=== PATIENT | female | born 1995 | race Caucasian/White ===

== ENCOUNTER 2020-07-27 15:16 | Emergency (ER) | payer BC, OTHER ==
[~2020-07-27] VITALS: Ht 162.6 cm; Wt 86.2 kg
[2020-07-27 15:59] LABS: BASOPHILS ABSOLUTE AUTO 0.03 K/mm3 (0.00-0.23); BASOPHILS PERCENT AUTO 0 % (0-2); EOSINOPHILS ABSOLUTE AUTO 0.19 K/mm3 (0.00-0.68); EOSINOPHILS PERCENT AUTO 2 % (0-6); Hemoglobin 13.2 g/dL (11.5-16.0); IMMATURE GRAN ABSOLUTE AUTO 0.03 K/mm3 (0.00-0.10); IMMATURE GRAN PERCENT AUTO 0 % (0-1); LYMPHOCYTES ABSOLUTE AUTO 2.11 K/mm3 (0.84-5.20); LYMPHOCYTES PERCENT AUTO 26 % (21-46); MONOCYTES ABSOLUTE AUTO 0.45 K/mm3 (0.16-1.47); MONOCYTES PERCENT AUTO 6 % (4-13); Mean Corpuscular HGB Conc 31.4 g/dL (31.5-36.5); Mean Corpuscular Volume 79 fL (80-100); Mean Platelet Volume 10.1 fL (9.1-12.4); NEUTROPHILS ABSOLUTE AUTO 5.29 K/mm3 (1.96-9.15); NEUTROPHILS PERCENT AUTO 65 % (41-73); Platelet Count 256 K/mm3 (150-400); RDW Coefficient Variation 14.6 % (11.7-14.2); Red Blood Cell Count 5.29 M/mm3 (3.80-5.20)
[2020-07-27 16:39] LABS: Alanine Aminotransfer (ALT/SGP 28 U/L (12-78); Albumin, Blood 3.3 g/dL (3.4-5.0); Albumin/Globulin Ratio 0.8 (0.8-1.8); Alk Phos 99 U/L (50-136); Anion Gap 5 mmol/L (6-16); Aspartate Aminotrans (AST/SGOT 11 U/L (12-37); Beta HCG, Quantitative, Serum <1 mIU/mL (0-3); Bilirubin, Total 0.5 mg/dL (0.1-1.0); Blood Urea Nitrogen 14 mg/dL (8-24); CO2, Blood 25 mmol/L (21-32); Calcium, Blood 8.7 mg/dL (8.5-10.1); Chloride, Blood 111 mmol/L (98-108); Creatinine, Blood 0.56 mg/dL (0.40-1.00); Globulin, Blood 3.9 g/dL (2.2-4.0); Glomerular Filtration Rate >60 (60-); Glucose, Blood 106 mg/dL (70-99); Potassium, Blood 3.8 mmol/L (3.5-5.5); Sodium, Blood 141 mmol/L (136-145); Total Protein, Blood 7.2 g/dL (6.4-8.2)
== END 2020-07-27 19:17 | disposition home or self-care (01) ==
LOC: ER 15:16
PROVIDERS: Physician Assistant
DX: N93.9 Abnormal uterine and vaginal bleeding, unspecified (principal); Z91.040 Latex allergy status; Z91.018 Allergy to other foods
CPT/HCPCS: 76801; 76817; 76830; 80053; 84702; 85025; 86900; 86901; 99284-25

== ENCOUNTER → 2021-02-02 | Outpatient (CLI) | payer BC, OTHER ==
[2021-02-02 14:53] LABS: Appearance, Urine Clear (Clear); Bilirubin, Urine Neg (Neg); Blood, Urine Neg (Neg); Color, Urine Yellow (P-Yellow); Glucose Qualitative, Urine Neg (Neg); Ketones, Urine 4+ (Neg); Leukocyte Esterase, Urine 2+ (Neg); Nitrite, Urine Pos (Neg); Protein, Urine 2+ (Neg); Specific Gravity, Urine 1.025 (1.003-1.022); Urobilinogen, Urine 1+ (Normal)
[2021-02-02 15:16] LABS: Bacteria Many /hpf; Red Blood Cells, Urine Not Seen /hpf (0-2); Squamous Epithelial Cells Few /hpf (Few)
== END | disposition home or self-care (01) ==
LOC: LAB 12:01 → LAB SHORT 12:01
PROVIDERS: Family Medicine
DX: Z34.91 Encounter for supervision of normal pregnancy, unspecified, first trimester (principal)
CPT/HCPCS: 81001; 87077; 87086; 87186

== ENCOUNTER 2021-08-25 18:32 | Emergency (ER) | payer BC, OTHER ==
[~2021-08-25] VITALS: Ht 162.6 cm; Wt 95.2 kg
[2021-08-25 23:16] LABS: Source, Urine Clean Catch
[2021-08-25 23:26] LABS: Bilirubin, Urine Neg (Neg); Blood, Urine 1+ (Neg); Color, Urine Pale Yellow (P-Yellow); Glucose Qualitative, Urine Neg (Neg); Ketones, Urine Neg (Neg); Leukocyte Esterase, Urine 3+ (Neg); Nitrite, Urine Neg (Neg); Protein, Urine 2+ (Neg); Urobilinogen, Urine NORM (Normal)
[2021-08-25 23:27] LABS: Appearance, Urine Hazy (Clear); Bacteria Mod /hpf; Squamous Epithelial Cells Many /hpf (Few); Yeast/Fungi Urine Few /hpf
== END 2021-08-26 00:11 | disposition home or self-care (01) ==
LOC: ER 18:32
PROVIDERS: Emergency Medicine
DX: O99.891 Other specified diseases and conditions complicating pregnancy (principal); R51.9 Headache, unspecified; Z91.040 Latex allergy status; Z91.018 Allergy to other foods; Z3A.30 30 weeks gestation of pregnancy
CPT/HCPCS: 81001; 87077; 87086; 87186; 99284; A9270

== ENCOUNTER 2021-09-05 12:01 | Inpatient (IN) | payer BC, OTHER ==
[~2021-09-05] VITALS: Ht 162.6 cm; Wt 112.0 kg
[2021-09-05] MEDS ORDERED: OMEP20ER PO (14:06)
[2021-09-05 15:14] LABS: BASOPHILS ABSOLUTE AUTO 0.04 K/mm3 (0.00-0.23); BASOPHILS PERCENT AUTO 0 % (0-2); EOSINOPHILS ABSOLUTE AUTO 0.05 K/mm3 (0.00-0.68); EOSINOPHILS PERCENT AUTO 1 % (0-6); Hematocrit 33.1 % (33.0-51.0); Hemoglobin 10.2 g/dL (11.5-16.0); IMMATURE GRAN ABSOLUTE AUTO 0.09 K/mm3 (0.00-0.10); IMMATURE GRAN PERCENT AUTO 1 % (0-1); LYMPHOCYTES ABSOLUTE AUTO 2.14 K/mm3 (0.84-5.20); LYMPHOCYTES PERCENT AUTO 20 % (21-46); MONOCYTES ABSOLUTE AUTO 0.64 K/mm3 (0.16-1.47); MONOCYTES PERCENT AUTO 6 % (4-13); Mean Corpuscular HGB 23.1 pg (26.0-34.0); Mean Corpuscular HGB Conc 30.8 g/dL (31.5-36.5); Mean Corpuscular Volume 75 fL (80-100); Mean Platelet Volume 10.4 fL (9.1-12.4); NEUTROPHILS ABSOLUTE AUTO 7.86 K/mm3 (1.96-9.15); NEUTROPHILS PERCENT AUTO 73 % (41-73); Platelet Count 220 K/mm3 (150-400); RDW Coefficient Variation 15.6 % (11.7-14.2); RDW Standard Deviation 41.8 fL (35.1-46.3); Red Blood Cell Count 4.41 M/mm3 (3.80-5.20); White Blood Cell Count 10.82 K/mm3 (4.00-11.30)
[2021-09-05 15:36] LABS: Influenza A, PCR NEGATIVE (NEGATIVE); Influenza B, PCR NEGATIVE (NEGATIVE); Resp Syncytial Virus, PCR NEGATIVE (NEGATIVE); SARS-Cov-2 (COVID-19) PCR, MMC NEGATIVE (NEGATIVE)
[2021-09-05 18:52] LABS: PO2 Cord - Arterial 17.6 mmHg (16-20); pH Cord - Arterial 7.26 (7.28-7.35)
[2021-09-05 18:54] LABS: PCO2 Cord - Venous 47.3 mmHg (40-50); PO2 Cord - Venous 27.9 mmHg (28-32); pH Umbilical Cord - Venous 7.28 (7.26-7.35)
[2021-09-06 06:14] LABS: BASOPHILS ABSOLUTE AUTO 0.02 K/mm3 (0.00-0.23); BASOPHILS PERCENT AUTO 0 % (0-2); EOSINOPHILS ABSOLUTE AUTO 0.01 K/mm3 (0.00-0.68); EOSINOPHILS PERCENT AUTO 0 % (0-6); Hematocrit 30.1 % (33.0-51.0); Hemoglobin 9.3 g/dL (11.5-16.0); IMMATURE GRAN ABSOLUTE AUTO 0.17 K/mm3 (0.00-0.10); IMMATURE GRAN PERCENT AUTO 1 % (0-1); LYMPHOCYTES PERCENT AUTO 6 % (21-46); MONOCYTES ABSOLUTE AUTO 0.55 K/mm3 (0.16-1.47); MONOCYTES PERCENT AUTO 3 % (4-13); Mean Corpuscular HGB Conc 30.9 g/dL (31.5-36.5); Mean Corpuscular Volume 75 fL (80-100); Mean Platelet Volume 10.7 fL (9.1-12.4); NEUTROPHILS ABSOLUTE AUTO 17.69 K/mm3 (1.96-9.15); NEUTROPHILS PERCENT AUTO 90 % (41-73); Platelet Count 228 K/mm3 (150-400); RDW Coefficient Variation 15.4 % (11.7-14.2); RDW Standard Deviation 41.1 fL (35.1-46.3); Red Blood Cell Count 4.04 M/mm3 (3.80-5.20); White Blood Cell Count 19.64 K/mm3 (4.00-11.30)
--- NOTE | 2021-09-07 02:25 | NUR ---
ON 09/06/2021 AT 2315 THE PATIENT REPORTED SHE HAD SIGNIFICANT BILATERAL FLANK PAIN AND BLOATING/GAS IN ABDOMEN. SHE REPORTS SHE HAD A VERY SMALL BOWEL MOVEMENT YESTERDAY MORNING AND VOICES CONCERN THAT SHE HASN'T BEEN ABLE TO HAVE ANOTHER. SHE REPORTS 8/10 PAIN THAT HAS NOT BEEN RELIEVED BY PAIN MEDICATIONS AND OTHER THERAPEUTIC MEASURES. SHE ALSO REPORTED THAT SHE HAD WALKED PT IN [place] DOWN THE HALLWAY A FEW TIMES DURING THE DAY. DURING THAT TIME, HER BLEEDING WAS HEAVIER BUT HAS NOW SUBSIDED. SHE WAS GIVEN SIMETHICONE FOR GAS. GÉNESIS JIMENEZ TAPPED HER KIDNEYS AND SHE JUMPED IN PAIN WITH BOTH. PT IS BEING TREATED FOR UTI (E. COLI) WITH KEFLEX BID. CALLED MARY HEBERT, WHO IS VACCINE MANAGER THIS EVENING AND NOTIFIED HER OF THE UPDATE IN PATIENT'S STATUS. SHE ORDERED ROCEPHIN 1 GM IV NOW AND ROXICODONE 5-10 MG PO Q4H PRN BREAKTHROUGH PAIN. THESE WERE GIVEN TO PATIENT. PT ALSO HAS A HEATING PAD FOR HER BACK WHICH SHE SAYS PROVIDES SOME RELIEF.
[2021-09-08] MEDS ORDERED: Percocet 5-3251 EACH PO (03:15)
[2021-09-08] MEDS ORDERED: IBUP800 PO (03:15)
[2021-09-08] MEDS ORDERED: DOCU100 PO (03:17)
--- NOTE | 2021-09-08 09:01 | NUR ---
Pt sitting on bench at side of bed, tearful. Reporting pain 9/10, bilaterally but mostly on left flank. Using WASH TEST CHECKER appropriately with little relief. CNM in house, will notify.
[2021-09-08 09:51] LABS: BASOPHILS ABSOLUTE AUTO 0.03 K/mm3 (0.00-0.23); BASOPHILS PERCENT AUTO 0 % (0-2); EOSINOPHILS ABSOLUTE AUTO 0.08 K/mm3 (0.00-0.68); EOSINOPHILS PERCENT AUTO 1 % (0-6); Hematocrit 27.6 % (33.0-51.0); Hemoglobin 8.3 g/dL (11.5-16.0); IMMATURE GRAN ABSOLUTE AUTO 0.07 K/mm3 (0.00-0.10); IMMATURE GRAN PERCENT AUTO 1 % (0-1); LYMPHOCYTES ABSOLUTE AUTO 2.77 K/mm3 (0.84-5.20); LYMPHOCYTES PERCENT AUTO 23 % (21-46); MONOCYTES ABSOLUTE AUTO 0.65 K/mm3 (0.16-1.47); MONOCYTES PERCENT AUTO 5 % (4-13); Mean Corpuscular HGB 23.1 pg (26.0-34.0); Mean Corpuscular HGB Conc 30.1 g/dL (31.5-36.5); Mean Corpuscular Volume 77 fL (80-100); Mean Platelet Volume 10.6 fL (9.1-12.4); NEUTROPHILS ABSOLUTE AUTO 8.42 K/mm3 (1.96-9.15); NEUTROPHILS PERCENT AUTO 70 % (41-73); Platelet Count 209 K/mm3 (150-400); RDW Coefficient Variation 15.9 % (11.7-14.2); RDW Standard Deviation 43.6 fL (35.1-46.3); Red Blood Cell Count 3.59 M/mm3 (3.80-5.20); White Blood Cell Count 12.02 K/mm3 (4.00-11.30)
[2021-09-08 10:25] LABS: Alanine Aminotransfer (ALT/SGP 22 U/L (12-78); Albumin, Blood 1.9 g/dL (3.4-5.0); Albumin/Globulin Ratio 0.5 (0.8-1.8); Alk Phos 107 U/L (50-136); Amylase, Blood 53 U/L (25-115); Anion Gap 7 mmol/L (6-16); Aspartate Aminotrans (AST/SGOT 26 U/L (12-37); Bilirubin, Total 0.2 mg/dL (0.1-1.0); Blood Urea Nitrogen 11 mg/dL (8-24); Bun/Creatinine Ratio 20.2 (12.0-20.0); CO2, Blood 25 mmol/L (21-32); Calcium, Blood 8.2 mg/dL (8.5-10.1); Chloride, Blood 109 mmol/L (98-108); Creatinine, Blood 0.55 mg/dL (0.40-1.00); Globulin, Blood 3.8 g/dL (2.2-4.0); Glomerular Filtration Rate >60 (60-); Glucose, Blood 74 mg/dL (70-99); Potassium, Blood 4.1 mmol/L (3.5-5.5); Sodium, Blood 141 mmol/L (136-145); Total Protein, Blood 5.7 g/dL (6.4-8.2)
--- NOTE | 2021-09-08 13:20 | NUR ---
Pt up to br w/minimal assist mostly r/t pain. Reports she had a large bm and void. Reports pain has been better and that she has been napping. will eat lunch and then take motrin prn. VSS.
--- NOTE | 2021-09-08 16:30 | NUR ---
PT STATES SHE IS FEELING MUCH BETTER THIS AFTERNOON. PT HAS BEEN UP AMBULATING IN ROOM AND CARING FOR BABY INDEPENDANTLY. STATES SHE ISNT HAVING TO PUSH THE MEDICAL RECORDS TECHNICIAN BUTTON MUCH SO EXPLAINED NEXT GOAL IS TO TURN IT OFF COMPLETELY AND RESTART PO MEDS.
--- NOTE | 2021-09-08 18:05 | NUR ---
PT FEELING VERY GOOD AND CONTINUES TO AMBULATE IN ROOM. PT WANTING TO ACTUALLY GO HOME NOW BUT DISCUSSED IT IS A LITTLE LATE FOR PHARMACY TO FILL RX SO SHOULD BE ABLE TO DC HOME FIRST THING IN THE MORNING. ONLINE MERCHANDISING MANAGER TURNED OFF AND WILL SWITCH TO PO MEDS FOR PAIN. PT VERBALIZES UNDERSTANDING.
[2021-09-09] MEDS ORDERED: CEPH500 PO (07:09)
--- NOTE | 2021-09-09 09:37 | NUR ---
DISCHARGE DISCHARGE HOME STABLE. PAIN VERY WELL CONTROLLED NOW. NO QUESTIONS OR CONCERNS. CARING FOR SELF AND BABY INDEPENDANTLY. VERBALIZES UNDERSTANDING OF DC INSTRUCTIONS AND FOLLOW UP APPOINTMENTS.VSS.
== END 2021-09-09 09:35 | disposition home or self-care (01) | DRG 784 ==
LOC: BC 12:01 → OBS 12:01 → BC 13:36
PROVIDERS: Family Medicine; ADMIT Nurse Practitioner Obstetrics & Gynecology
PROC: 10D00Z1 Extraction of Products of Conception, Low, Open Approach (ICD-10-PCS; principal; 2021-09-05 14:30)
PROC: 0UB70ZZ Excision of Bilateral Fallopian Tubes, Open Approach (ICD-10-PCS; 2021-09-05 14:30)
DX: O34.211 Maternal care for low transverse scar from previous cesarean delivery (principal); N12 Tubulo-interstitial nephritis, not specified as acute or chronic; O98.82 Other maternal infectious and parasitic diseases complicating childbirth; Z37.0 Single live birth; Z3A.39 39 weeks gestation of pregnancy; Z20.822 Contact with and (suspected) exposure to COVID-19; Z30.2 Encounter for sterilization; Q05.9 Spina bifida, unspecified; K59.00 Constipation, unspecified; O99.892 Other specified diseases and conditions complicating childbirth; O99.214 Obesity complicating childbirth; Z28.82 Immunization not carried out because of caregiver refusal; Z79.899 Other long term (current) drug therapy; Z91.040 Latex allergy status; Z91.018 Allergy to other foods; Z85.820 Personal history of malignant melanoma of skin
CPT/HCPCS: 0241U; 36415; 59025; 74176; 76770; 80053; 82150; 82803; 83690; 85025; 86850; 86900; 86901; 86923; 88302; A9270; C1751; J0330; J0696; J1100; J1170; J1885; J2210; J2270; J2405; J2704; J2765; J3010; J7120

== ENCOUNTER 2022-02-22 16:00 | Emergency (ER) | payer BC, OTHER ==
[~2022-02-22] VITALS: Ht 162.6 cm; Wt 108.0 kg
[~2022-02-22 16:00] MED LIST: CEPH500 PO; DOCU100 PO; IBUP800 PO; OMEP20ER PO; ONDA4ODT MM; Percocet 5-3251 EACH PO; Protonix40 MG PO; SUCR1 PO
[2022-02-22 19:57] LABS: BASOPHILS ABSOLUTE AUTO 0.06 K/mm3 (0.00-0.23); BASOPHILS PERCENT AUTO 1 % (0-2); EOSINOPHILS ABSOLUTE AUTO 0.38 K/mm3 (0.00-0.68); EOSINOPHILS PERCENT AUTO 3 % (0-6); Hematocrit 36.5 % (33.0-51.0); IMMATURE GRAN ABSOLUTE AUTO 0.07 K/mm3 (0.00-0.10); IMMATURE GRAN PERCENT AUTO 1 % (0-1); LYMPHOCYTES ABSOLUTE AUTO 3.37 K/mm3 (0.84-5.20); LYMPHOCYTES PERCENT AUTO 30 % (21-46); MONOCYTES ABSOLUTE AUTO 0.62 K/mm3 (0.16-1.47); MONOCYTES PERCENT AUTO 6 % (4-13); Mean Corpuscular HGB 21.7 pg (26.0-34.0); Mean Corpuscular HGB Conc 30.1 g/dL (31.5-36.5); Mean Corpuscular Volume 72 fL (80-100); NEUTROPHILS PERCENT AUTO 60 % (41-73); Platelet Count 280 K/mm3 (150-400); RDW Coefficient Variation 18.8 % (11.7-14.2); RDW Standard Deviation 47.1 fL (35.1-46.3); Red Blood Cell Count 5.07 M/mm3 (3.80-5.20)
[2022-02-22 20:15] LABS: Albumin, Blood 3.3 g/dL (3.4-5.0); Albumin/Globulin Ratio 0.8 (0.8-1.8); Bilirubin, Total 0.2 mg/dL (0.1-1.0); Bun/Creatinine Ratio 22.9 (12.0-20.0); Calcium, Blood 8.5 mg/dL (8.5-10.1); Creatinine, Blood 0.61 mg/dL (0.40-1.00); Potassium, Blood 4.4 mmol/L (3.5-5.5); Total Protein, Blood 7.3 g/dL (6.4-8.2)
[2022-02-22] MEDS ORDERED: OXAYDO5 M1 PO (22:49)
[2022-02-22] MEDS ORDERED: METO10 PO (22:49)
== END 2022-02-22 23:09 | disposition home or self-care (01) ==
LOC: ER 16:00
PROVIDERS: Student in an Organized Health Care Education/Training Program
DX: R10.13 Epigastric pain (principal); K92.0 Hematemesis; Z79.899 Other long term (current) drug therapy; Z91.040 Latex allergy status; Z91.018 Allergy to other foods
CPT/HCPCS: 74018; 80053; 83690; 85025; C9113; J1790; J3010; J7030

== ENCOUNTER 2022-03-03 14:42 | Emergency (ER) | payer BC, OTHER ==
[~2022-03-03] VITALS: Ht 162.6 cm; Wt 108.4 kg
[~2022-03-03 14:42] MED LIST changes: +METO10 PO; +OXAYDO5 M1 PO
[2022-03-03 15:48] LABS: BASOPHILS ABSOLUTE AUTO 0.06 K/mm3 (0.00-0.23); BASOPHILS PERCENT AUTO 1 % (0-2); EOSINOPHILS ABSOLUTE AUTO 0.36 K/mm3 (0.00-0.68); EOSINOPHILS PERCENT AUTO 3 % (0-6); Hematocrit 37.9 % (33.0-51.0); Hemoglobin 11.2 g/dL (11.5-16.0); IMMATURE GRAN ABSOLUTE AUTO 0.03 K/mm3 (0.00-0.10); IMMATURE GRAN PERCENT AUTO 0 % (0-1); LYMPHOCYTES ABSOLUTE AUTO 2.62 K/mm3 (0.84-5.20); LYMPHOCYTES PERCENT AUTO 25 % (21-46); MONOCYTES PERCENT AUTO 6 % (4-13); Mean Corpuscular HGB 21.9 pg (26.0-34.0); Mean Corpuscular HGB Conc 29.6 g/dL (31.5-36.5); Mean Corpuscular Volume 74 fL (80-100); Mean Platelet Volume 9.8 fL (9.1-12.4); NEUTROPHILS ABSOLUTE AUTO 6.89 K/mm3 (1.96-9.15); NEUTROPHILS PERCENT AUTO 65 % (41-73); Platelet Count 263 K/mm3 (150-400); RDW Coefficient Variation 18.4 % (11.7-14.2); RDW Standard Deviation 49.1 fL (35.1-46.3); Red Blood Cell Count 5.12 M/mm3 (3.80-5.20); White Blood Cell Count 10.56 K/mm3 (4.00-11.30)
[2022-03-03 16:13] LABS: Albumin, Blood 3.1 g/dL (3.4-5.0); Albumin/Globulin Ratio 0.8 (0.8-1.8); Bilirubin, Total 0.4 mg/dL (0.1-1.0); Bun/Creatinine Ratio 34.4 (12.0-20.0); Calcium, Blood 8.6 mg/dL (8.5-10.1); Creatinine, Blood 0.49 mg/dL (0.40-1.00); Globulin, Blood 4.1 g/dL (2.2-4.0); Magnesium, Blood 2.1 mg/dL (1.6-2.4); Potassium, Blood 4.4 mmol/L (3.5-5.5); Total Protein, Blood 7.2 g/dL (6.4-8.2)
== END 2022-03-03 16:32 | disposition home or self-care (01) ==
LOC: ER 14:42
PROVIDERS: Physician Assistant
DX: R47.81 Slurred speech (principal); R44.3 Hallucinations, unspecified; T45.0X5A Adverse effect of antiallergic and antiemetic drugs, initial encounter; Y92.9 Unspecified place or not applicable; Z79.899 Other long term (current) drug therapy; Z91.040 Latex allergy status; Z91.018 Allergy to other foods
CPT/HCPCS: 36415; 80053; 83735; 85025; A9270

== ENCOUNTER 2022-04-09 11:28 | Emergency (ER) | payer BC, OTHER ==
[~2022-04-09] VITALS: Ht 162.6 cm; Wt 108.9 kg
[2022-04-09 12:10] LABS: BASOPHILS ABSOLUTE AUTO 0.07 K/mm3 (0.00-0.23); BASOPHILS PERCENT AUTO 1 % (0-2); EOSINOPHILS PERCENT AUTO 5 % (0-6); IMMATURE GRAN ABSOLUTE AUTO 0.04 K/mm3 (0.00-0.10); IMMATURE GRAN PERCENT AUTO 0 % (0-1); LYMPHOCYTES ABSOLUTE AUTO 3.37 K/mm3 (0.84-5.20); LYMPHOCYTES PERCENT AUTO 33 % (21-46); MONOCYTES ABSOLUTE AUTO 0.66 K/mm3 (0.16-1.47); MONOCYTES PERCENT AUTO 6 % (4-13); Mean Corpuscular HGB 21.9 pg (26.0-34.0); Mean Corpuscular HGB Conc 30.6 g/dL (31.5-36.5); Mean Corpuscular Volume 72 fL (80-100); Mean Platelet Volume 10.2 fL (9.1-12.4); NEUTROPHILS ABSOLUTE AUTO 5.71 K/mm3 (1.96-9.15); NEUTROPHILS PERCENT AUTO 55 % (41-73); Platelet Count 327 K/mm3 (150-400); RDW Coefficient Variation 16.4 % (11.7-14.2); RDW Standard Deviation 42.5 fL (35.1-46.3); Red Blood Cell Count 5.02 M/mm3 (3.80-5.20); White Blood Cell Count 10.35 K/mm3 (4.00-11.30)
[2022-04-09 12:33] LABS: Albumin, Blood 3.4 g/dL (3.4-5.0); Albumin/Globulin Ratio 0.9 (0.8-1.8); Bilirubin, Total 0.3 mg/dL (0.1-1.0); Bun/Creatinine Ratio 33.1 (12.0-20.0); Calcium, Blood 8.7 mg/dL (8.5-10.1); Creatinine, Blood 0.48 mg/dL (0.40-1.00); Globulin, Blood 3.9 g/dL (2.2-4.0); Potassium, Blood 4.2 mmol/L (3.5-5.5); Total Protein, Blood 7.3 g/dL (6.4-8.2)
[2022-04-09 14:26] LABS: Source, Urine Clean Catch
[2022-04-09 14:28] LABS: Appearance, Urine Clear (Clear); Bilirubin, Urine Neg (Neg); Blood, Urine Neg (Neg); Color, Urine Yellow (P-Yellow); Glucose Qualitative, Urine Neg (Neg); Ketones, Urine Neg (Neg); Leukocyte Esterase, Urine Neg (Neg); Nitrite, Urine Neg (Neg); Protein, Urine Neg (Neg); Urobilinogen, Urine NORM (Normal)
== END 2022-04-09 16:25 | disposition home or self-care (01) ==
LOC: ER 11:28
PROVIDERS: Physician Assistant
DX: R10.13 Epigastric pain (principal); C85.90 Non-Hodgkin lymphoma, unspecified, unspecified site; Z91.040 Latex allergy status; Z91.018 Allergy to other foods; Z79.899 Other long term (current) drug therapy; Z79.891 Long term (current) use of opiate analgesic
CPT/HCPCS: 36415; 74177; 80053; 81003; 81025; 83690; 85025; 96374-59; 99284-25; J2405; Q9967

== ENCOUNTER → 2022-05-03 | Outpatient (CLI) | payer OTHER ==
[2022-05-03 16:38] LABS: BASOPHILS ABSOLUTE AUTO 0.06 K/mm3 (0.00-0.23); BASOPHILS PERCENT AUTO 1 % (0-2); EOSINOPHILS ABSOLUTE AUTO 0.57 K/mm3 (0.00-0.68); EOSINOPHILS PERCENT AUTO 6 % (0-6); Hematocrit 38.1 % (33.0-51.0); Hemoglobin 11.5 g/dL (11.5-16.0); IMMATURE GRAN ABSOLUTE AUTO 0.03 K/mm3 (0.00-0.10); IMMATURE GRAN PERCENT AUTO 0 % (0-1); LYMPHOCYTES ABSOLUTE AUTO 2.46 K/mm3 (0.84-5.20); LYMPHOCYTES PERCENT AUTO 27 % (21-46); MONOCYTES ABSOLUTE AUTO 0.54 K/mm3 (0.16-1.47); MONOCYTES PERCENT AUTO 6 % (4-13); Mean Corpuscular HGB 21.6 pg (26.0-34.0); Mean Corpuscular HGB Conc 30.2 g/dL (31.5-36.5); Mean Corpuscular Volume 72 fL (80-100); Mean Platelet Volume 10.1 fL (9.1-12.4); NEUTROPHILS ABSOLUTE AUTO 5.52 K/mm3 (1.96-9.15); NEUTROPHILS PERCENT AUTO 60 % (41-73); Platelet Count 330 K/mm3 (150-400); RDW Coefficient Variation 16.4 % (11.7-14.2); RDW Standard Deviation 41.3 fL (35.1-46.3); Red Blood Cell Count 5.32 M/mm3 (3.80-5.20); White Blood Cell Count 9.18 K/mm3 (4.00-11.30)
[2022-05-03 16:48] LABS: Albumin, Blood 3.7 g/dL (3.4-5.0); Albumin/Globulin Ratio 0.8 (0.8-1.8); Bilirubin, Total 0.2 mg/dL (0.1-1.0); Bun/Creatinine Ratio 26.2 (12.0-20.0); Creatinine, Blood 0.61 mg/dL (0.40-1.00); Globulin, Blood 4.4 g/dL (2.2-4.0); Potassium, Blood 3.8 mmol/L (3.5-5.5); Total Protein, Blood 8.1 g/dL (6.4-8.2)
== END | disposition home or self-care (01) ==
LOC: LAB 16:33 → LAB SHORT 16:33
PROVIDERS: Physician Assistant
DX: R10.9 Unspecified abdominal pain (principal)
CPT/HCPCS: 80053; 83605; 85025; 87040

== ENCOUNTER → 2022-05-07 | Outpatient (CLI) | payer OTHER | END | disposition home or self-care (01) | LOC: LAB SHORT 19:28 → LAB 19:28 | DX: R89.9 Unspecified abnormal finding in specimens from other organs, systems and tissues (principal) | CPT/HCPCS: 87040 ==

== ENCOUNTER 2023-01-28 22:41 | Emergency (ER) | payer OTHER ==
[~2023-01-28] VITALS: Ht 162.6 cm; Wt 121.6 kg
[2023-01-28 23:08] LABS: BASOPHILS ABSOLUTE AUTO 0.05 K/mm3 (0.00-0.23); BASOPHILS PERCENT AUTO 1 % (0-2); EOSINOPHILS ABSOLUTE AUTO 0.39 K/mm3 (0.00-0.68); EOSINOPHILS PERCENT AUTO 4 % (0-6); Hematocrit 37.2 % (33.0-51.0); Hemoglobin 11.5 g/dL (11.5-16.0); IMMATURE GRAN ABSOLUTE AUTO 0.03 K/mm3 (0.00-0.10); IMMATURE GRAN PERCENT AUTO 0 % (0-1); LYMPHOCYTES ABSOLUTE AUTO 3.27 K/mm3 (0.84-5.20); LYMPHOCYTES PERCENT AUTO 31 % (21-46); MONOCYTES ABSOLUTE AUTO 0.61 K/mm3 (0.16-1.47); MONOCYTES PERCENT AUTO 6 % (4-13); Mean Corpuscular HGB Conc 30.9 g/dL (31.5-36.5); Mean Corpuscular Volume 71 fL (80-100); Mean Platelet Volume 10.1 fL (9.1-12.4); NEUTROPHILS ABSOLUTE AUTO 6.13 K/mm3 (1.96-9.15); NEUTROPHILS PERCENT AUTO 59 % (41-73); Platelet Count 271 K/mm3 (150-400); RDW Coefficient Variation 19.7 % (11.7-14.2); RDW Standard Deviation 48.4 fL (35.1-46.3); Red Blood Cell Count 5.23 M/mm3 (3.80-5.20); White Blood Cell Count 10.48 K/mm3 (4.00-11.30)
[2023-01-28 23:29] LABS: Albumin, Blood 3.2 g/dL (3.4-5.0); Albumin/Globulin Ratio 0.9 (0.8-1.8); Bilirubin, Total 0.2 mg/dL (0.1-1.0); Bun/Creatinine Ratio 32.3 (12.0-20.0); Calcium, Blood 8.2 mg/dL (8.5-10.1); Creatinine, Blood 0.56 mg/dL (0.40-1.00); Globulin, Blood 3.7 g/dL (2.2-4.0); Potassium, Blood 3.7 mmol/L (3.5-5.5); Total Protein, Blood 6.9 g/dL (6.4-8.2)
[2023-01-29 01:15] VITALS: BP 98/59
[2023-01-29] MEDS ORDERED: LEVONOR-ETH ES1 EAC5 PO (02:03)
[2023-01-29] MEDS ORDERED: EUTHYROX50 MC1 PO (02:04)
== END 2023-01-29 02:33 | disposition home or self-care (01) ==
LOC: ER 22:41
PROVIDERS: Student in an Organized Health Care Education/Training Program
DX: R55 Syncope and collapse (principal); Z91.018 Allergy to other foods; Z91.040 Latex allergy status; Z79.890 Hormone replacement therapy; Z79.1 Long term (current) use of non-steroidal anti-inflammatories (NSAID); Z79.899 Other long term (current) drug therapy
CPT/HCPCS: 36415; 71046; 80053; 84703; 85025; 85379; 93005; 93010; 96361; 96374; 96375; 99284-25; J1200; J1885; J2765; J7030

== ENCOUNTER → 2023-04-09 | Outpatient (CLI) | payer OTHER ==
[~2023-04-09] MED LIST changes: +EUTHYROX50 MC1 PO; +LEVONOR-ETH ES1 EAC5 PO
[2023-04-09 17:06] LABS: BASOPHILS ABSOLUTE AUTO 0.06 K/mm3 (0.00-0.23); BASOPHILS PERCENT AUTO 1 % (0-2); EOSINOPHILS ABSOLUTE AUTO 0.26 K/mm3 (0.00-0.68); EOSINOPHILS PERCENT AUTO 3 % (0-6); Hematocrit 41.3 % (33.0-51.0); Hemoglobin 12.6 g/dL (11.5-16.0); IMMATURE GRAN ABSOLUTE AUTO 0.03 K/mm3 (0.00-0.10); IMMATURE GRAN PERCENT AUTO 0 % (0-1); LYMPHOCYTES ABSOLUTE AUTO 2.53 K/mm3 (0.84-5.20); LYMPHOCYTES PERCENT AUTO 27 % (21-46); MONOCYTES ABSOLUTE AUTO 0.54 K/mm3 (0.16-1.47); MONOCYTES PERCENT AUTO 6 % (4-13); Mean Corpuscular HGB 22.1 pg (26.0-34.0); Mean Corpuscular HGB Conc 30.5 g/dL (31.5-36.5); Mean Corpuscular Volume 73 fL (80-100); Mean Platelet Volume 11.2 fL (9.1-12.4); NEUTROPHILS ABSOLUTE AUTO 5.92 K/mm3 (1.96-9.15); NEUTROPHILS PERCENT AUTO 63 % (41-73); Platelet Count 258 K/mm3 (150-400); RDW Coefficient Variation 16.4 % (11.7-14.2); RDW Standard Deviation 41.1 fL (35.1-46.3); White Blood Cell Count 9.34 K/mm3 (4.00-11.30)
[2023-04-09 17:28] LABS: Albumin, Blood 3.8 g/dL (3.4-5.0); Albumin/Globulin Ratio 0.8 (0.8-1.8); Bilirubin, Total 0.5 mg/dL (0.1-1.0); Bun/Creatinine Ratio 20.8 (12.0-20.0); Creatinine, Blood 0.53 mg/dL (0.40-1.00); Globulin, Blood 4.8 g/dL (2.2-4.0); Potassium, Blood 4.4 mmol/L (3.5-5.5); Total Protein, Blood 8.6 g/dL (6.4-8.2)
== END ==
LOC: LAB 15:40 → LAB SHORT 15:40
PROVIDERS: Physician Assistant
DX: E86.0 Dehydration (principal)
CPT/HCPCS: 80053; 85025

== ENCOUNTER 2023-05-03 20:24 | Emergency (ER) | payer OTHER ==
[~2023-05-03] VITALS: Ht 162.6 cm; Wt 121.6 kg
[2023-05-03 21:34] LABS: BASOPHILS ABSOLUTE AUTO 0.04 K/mm3 (0.00-0.23); BASOPHILS PERCENT AUTO 0 % (0-2); EOSINOPHILS ABSOLUTE AUTO 0.22 K/mm3 (0.00-0.68); EOSINOPHILS PERCENT AUTO 2 % (0-6); Hematocrit 39.8 % (33.0-51.0); Hemoglobin 12.2 g/dL (11.5-16.0); IMMATURE GRAN ABSOLUTE AUTO 0.02 K/mm3 (0.00-0.10); IMMATURE GRAN PERCENT AUTO 0 % (0-1); LYMPHOCYTES ABSOLUTE AUTO 2.37 K/mm3 (0.84-5.20); LYMPHOCYTES PERCENT AUTO 23 % (21-46); MONOCYTES ABSOLUTE AUTO 0.61 K/mm3 (0.16-1.47); MONOCYTES PERCENT AUTO 6 % (4-13); Mean Corpuscular HGB 22.4 pg (26.0-34.0); Mean Corpuscular HGB Conc 30.7 g/dL (31.5-36.5); Mean Corpuscular Volume 73 fL (80-100); Mean Platelet Volume 10.5 fL (9.1-12.4); NEUTROPHILS ABSOLUTE AUTO 7.02 K/mm3 (1.96-9.15); NEUTROPHILS PERCENT AUTO 68 % (41-73); Platelet Count 302 K/mm3 (150-400); RDW Coefficient Variation 16.6 % (11.7-14.2); RDW Standard Deviation 42.9 fL (35.1-46.3); Red Blood Cell Count 5.44 M/mm3 (3.80-5.20); White Blood Cell Count 10.28 K/mm3 (4.00-11.30)
[2023-05-03 21:48] LABS: Albumin, Blood 3.7 g/dL (3.4-5.0); Albumin/Globulin Ratio 0.8 (0.8-1.8); Bilirubin, Total 0.4 mg/dL (0.1-1.0); Bun/Creatinine Ratio 10.5 (12.0-20.0); Calcium, Blood 9.2 mg/dL (8.5-10.1); Creatinine, Blood 0.67 mg/dL (0.40-1.00); Globulin, Blood 4.4 g/dL (2.2-4.0); Total Protein, Blood 8.1 g/dL (6.4-8.2)
[2023-05-03 21:48] LABS: Source, Urine Clean Catch
[2023-05-03 21:52] LABS: Appearance, Urine Hazy (Clear); Bilirubin, Urine Neg (Neg); Blood, Urine 2+ (Neg); Glucose Qualitative, Urine Neg (Neg); Ketones, Urine Neg (Neg); Leukocyte Esterase, Urine 2+ (Neg); Nitrite, Urine Pos (Neg); Protein, Urine 1+ (Neg); Specific Gravity, Urine 1.015 (1.003-1.022); Urobilinogen, Urine NORM (Normal)
[2023-05-03 22:24] LABS: Color, Urine Pale Yellow (P-Yellow)
[2023-05-03 22:25] LABS: Bacteria Mod /hpf; Red Blood Cells, Urine 0-2 /hpf (0-2); Squamous Epithelial Cells Few /hpf (Few); White Blood Cells, Urine 50-100 /hpf (0-5)
[2023-05-04] VITALS: BP 109/79
[2023-05-04] MEDS ORDERED: CIPR500 PO (01:42)
[2023-05-04] MEDS ORDERED: METR500 PO (01:42)
== END 2023-05-04 02:03 | disposition home or self-care (01) ==
LOC: ER 20:24
PROVIDERS: Student in an Organized Health Care Education/Training Program
DX: K52.9 Noninfective gastroenteritis and colitis, unspecified (principal); Z79.890 Hormone replacement therapy; Z79.3 Long term (current) use of hormonal contraceptives
CPT/HCPCS: 74177; 80053; 81001; 83690; 85025; 87077; 87086; 87186; 96361; 96374-59; 96375; 99284-25; A9270; J1885; J2405; J7030; Q9967

== ENCOUNTER → 2023-08-08 | Outpatient (CLI) | payer OTHER ==
[~2023-08-08] MED LIST changes: +CIPR500 PO; +METR500 PO
[2023-08-12 09:27] LABS: OVA AND PARASITE,FECAL INTERP Negative (Negative)
== END ==
LOC: LAB SHORT 13:55 → LAB 13:55
PROVIDERS: Physician Assistant
DX: R19.5 Other fecal abnormalities (principal)
CPT/HCPCS: 87177; 87209

== ENCOUNTER 2024-01-14 02:31 | Inpatient (IN) | payer OTHER ==
[~2024-01-14] VITALS: Ht 162.6 cm; Wt 120.8 kg
[2024-01-14] VITALS (9 sets, daily range): BP systolic 100–119; BP diastolic 59–85
[2024-01-14] MEDS ORDERED: DESV50 PO ×2 (04:37)
[2024-01-14] MEDS ORDERED: OMEP20ER PO ×2 (04:37)
[2024-01-14] MEDS ORDERED: Ketorolac Tromethamine 30mg Vial IV ONE (06:25)
[2024-01-14] MEDS ORDERED: NS 1,000 ML IV SCH ×2 (06:25→12:10)
[2024-01-14 07:08] LABS: BASOPHILS ABSOLUTE AUTO 0.06 K/mm3 (0.00-0.23); BASOPHILS PERCENT AUTO 1 % (0-2); EOSINOPHILS ABSOLUTE AUTO 0.23 K/mm3 (0.00-0.68); EOSINOPHILS PERCENT AUTO 2 % (0-6); Hematocrit 42.6 % (33.0-51.0); Hemoglobin 13.8 g/dL (11.5-16.0); IMMATURE GRAN ABSOLUTE AUTO 0.04 K/mm3 (0.00-0.10); IMMATURE GRAN PERCENT AUTO 0 % (0-1); LYMPHOCYTES ABSOLUTE AUTO 3.21 K/mm3 (0.84-5.20); LYMPHOCYTES PERCENT AUTO 26 % (21-46); MONOCYTES ABSOLUTE AUTO 0.75 K/mm3 (0.16-1.47); MONOCYTES PERCENT AUTO 6 % (4-13); Mean Corpuscular HGB 25.3 pg (26.0-34.0); Mean Corpuscular HGB Conc 32.4 g/dL (31.5-36.5); Mean Corpuscular Volume 78 fL (80-100); Mean Platelet Volume 10.4 fL (9.1-12.4); NEUTROPHILS PERCENT AUTO 65 % (41-73); Platelet Count 270 K/mm3 (150-400); RDW Coefficient Variation 16.2 % (11.7-14.2); RDW Standard Deviation 45.4 fL (35.1-46.3); Red Blood Cell Count 5.46 M/mm3 (3.80-5.20); White Blood Cell Count 12.29 K/mm3 (4.00-11.30)
[2024-01-14 07:28] LABS: Albumin, Blood 3.6 g/dL (3.4-5.0); Albumin/Globulin Ratio 0.9 (0.8-1.8); Bilirubin, Total 0.3 mg/dL (0.1-1.0); Bun/Creatinine Ratio 20.2 (12.0-20.0); Calcium, Blood 9.3 mg/dL (8.5-10.1); Creatinine, Blood 0.54 mg/dL (0.40-1.00); Globulin, Blood 4.1 g/dL (2.2-4.0); Total Protein, Blood 7.7 g/dL (6.4-8.2)
[2024-01-14 09:05] LABS: Influenza A, PCR NEGATIVE (NEGATIVE); Influenza B, PCR NEGATIVE (NEGATIVE); Resp Syncytial Virus, PCR NEGATIVE (NEGATIVE); SARS-Cov-2 (COVID-19) PCR, MMC NEGATIVE (NEGATIVE)
[2024-01-14] MEDS ORDERED: Aspirin 325 MG Tab PO ONE (09:20)
[2024-01-14] MEDS ORDERED: Ondansetron HCl 2 MG / ML 2ML Vial IV ONE (09:20)
[2024-01-14] MEDS ORDERED: FentaNYL Citrate 50 MCG/ML 2 ML Injection IV ONE (09:20)
[2024-01-14 11:02] LABS: Anti-Xa UFH, PHA Monitoring <0.10 IU/mL; International Normalized Ratio 1.14; Prothrombin Time Results 12.1 Sec (9.7-11.5)
[2024-01-14] MEDS ORDERED: Heparin Sodium 5000 Units/ML 1ML MDV IV ONE ×2 (11:20→22:20)
[2024-01-14] MEDS ORDERED: Heparin Sodium,Porcine/0.5 NS 500 ML IV SCH (11:20)
[2024-01-14] MEDS ORDERED: Ondansetron 4 MG TAB PO PRN (12:10)
[2024-01-14] MEDS ORDERED: Zolpidem Tartrate 10 MG Tab PO PRN (12:10)
[2024-01-14] MEDS ORDERED: Nitroglycerin 0.4 MG SUBL SL PRN (12:30)
[2024-01-14 12:58] LABS: CHOL/HDL RATIO 2.2; Cholesterol 115 mg/dL (50-200); HDL Cholesterol 53 mg/dL (>39); LDL/HDL RATIO 0.9; Low Density Lipoprotein Chol 48 mg/dL (0-110); Triglycerides 71 mg/dL (30-140); Very Low Density Lipoprot Chol 14 mg/dL (6-28)
[2024-01-14] MEDS ORDERED: Omeprazole 20 MG CapCR PO SCH (16:30)
--- NOTE | 2024-01-14 18:19 | NUR ---
PT ARRIVED THIS AFTERNOON FROM ER. SHE HAD ARRIVED TO ER WITH 3 DAYS HX OF CHEST PAIN. SHE HAS HX OF PRE-ECLAMPSIA 2 YEARS AGO, AND ABNORMAL STRESS TEST A FEW MONTHS AGO. THE PLAN IS FOR HER TO GO FOR ANGIO ON MONDAY 01/15. SHE IS CURRENTLY ON A HEPARIN DRIP. SHE HAS NS INFUSING AT THIS TIME. 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 SHE HAD CP THAT SHE RATED 7/10 ON ARRIVAL WHICH WAS ENTIRELY ELIMINATED WITH NITRO
[2024-01-14] MEDS ORDERED: Acetaminophen 325 MG TABLET PO PRN (21:20)
[2024-01-14] MEDS ORDERED: Dose Adjust by Pharmacy XX STA (22:15)
[2024-01-15 03:37] LABS: Source, Urine Clean Catch
[2024-01-15 03:43] VITALS: BP 105/60; BP 121/76
[2024-01-15 03:49] LABS: Bilirubin, Urine Neg (Neg); Blood, Urine Neg (Neg); Glucose Qualitative, Urine Neg (Neg); Ketones, Urine Neg (Neg); Leukocyte Esterase, Urine 2+ (Neg); Nitrite, Urine Pos (Neg); Protein, Urine Neg (Neg); Urobilinogen, Urine NORM (Normal)
[2024-01-15 04:14] LABS: Appearance, Urine Hazy (Clear); Bacteria Many /hpf; Color, Urine Yellow (P-Yellow); Red Blood Cells, Urine Not Seen /hpf (0-2); Squamous Epithelial Cells Few /hpf (Few); White Blood Cells, Urine 25-50 /hpf (0-5)
[2024-01-15 04:44] LABS: Hematocrit 36.3 % (33.0-51.0); Hemoglobin 11.5 g/dL (11.5-16.0); Mean Platelet Volume 10.2 fL (9.1-12.4); Platelet Count 220 K/mm3 (150-400)
--- NOTE | 2024-01-15 05:06 | NUR ---
SHIFT SUMMARY PT A&OX4, ABLE TO MAKE NEEDS KNOWN. VSS, AFEBRILE, SPO2 >95% RA. PT REPORTED MILD CP T/O SHIFT, NITRO ADMINISTERED X2 WITH SOME RESOLUTION OF PAIN AND SOB. PT CONTINUES TO REPORT THAT CP IS TENDER TO PALPATION AND WORSE WITH BREATHING. OBTAINED TYLENOL ORDER, ADMINISTERED PER EMAR. PT ALSO HAD C/O MILD MANZANARES AND A "BUZZING" SENSATION IN HER CHEST. SHE STATES THAT THESE SYMPTOMS HAVE BEEN GOING ON FOR QUITE SOMETIME AND DO NOT SEEM TO BE WORSE AT THIS TIME. HEPARIN GTT INFUSING. PT HAS HX SPINA BIFIDA AND PERFORMS SELF STRAIGHT CATHS, SUPPLIES IN ROOM. PT IS RESTING QUIETLY IN BED, CALL LIGHT WITHIN REACH, BREATHING EVEN AND UNLABORED.
[2024-01-15 08:13] VITALS: BP 127/73
--- NOTE | 2024-01-15 08:38 | NUR ---
PT A/O X4. SHE REPORTS THAT CP THAT SHE HAD PRIOR TO SHIFT CHANGE HAS RESOLVED WITH THE NITRO THAT WAS GIVEN THIS AM. SHE CONTINUES WITH THE LEFT STERNAL BORDER PAIN THAT IS WORSE WITH PALPATION AND INSPIRATION, PLUS A "DEEPER" PAIN OF LEFT CHEST WALL NEAR AXILA. DENIES SOB, EVEN CHEST RISE AND FALL NOTED, NO RETRACTIONS OR NASAL FLARRING SHE IS TALKING IN FULL SENTENCES. SHE CONTINUES WITH SELF CATHING AND USING BATHROOM INTERMITTENTLY. NO ABD PAIN REPORTED, ABDOMEN SOFT AND ROUND. SKIN PWD AND INTACT. NO RASHING OR EDEMA NOTED. HEPARIN CONTINUES TO INFUSE, NS HAS COMPLETED PRIOR TO THIS SHIFT. SHE IS ABLE TO AMBULATE TO BATHROOM WITH EVEN STEADY GAIT.
[2024-01-15] MEDS ORDERED: Aspirin 81 MG Chew PO SCH (09:00)
[2024-01-15] MEDS ORDERED: Venlafaxine HCl 75 MG CapCR PO SCH (09:00)
[2024-01-15] MEDS ORDERED: Dose Adjust by Pharmacy XX STA (11:58)
[2024-01-15 12:46] VITALS: BP 116/66
[2024-01-15] MEDS ORDERED: CefTRIAXone Sodium 1,000 MG in NS 100 ML IV SCH (15:00)
[2024-01-15] MEDS ORDERED: Lidocaine HCl 1% 20 ML MDV INFIL ONE (15:15)
[2024-01-15 16:55] VITALS: BP 124/85
--- NOTE | 2024-01-15 18:48 | NUR ---
PT HAS BEEN RESTING WELL IN BED T/O THE DAY. NO CHEST PAIN SINCE THIS AM. SHE HAS BOUTS OF ANXIETY THAT ARE RESOLVED WITH THERAPEUTIC COMMUNICATION. SR NOTED ON MONITOR WITH VSS. LAKHANI. SHE DENIES SOB, SHE REMAINS ON ROOM AIR. HEPARIN HAS BEEN INFUSING T/O THIS SHIFT WITHOUT RATE CHANGES. SHE WILL BE NPO AT [facility], SHE IS AWARE OF THIS TO PREPARE FOR ANGIO TOMORROW. WE HAVE NOT HAD ANY ACUTE CHANGES DURING THIS SHIFT
[2024-01-15 19:26] VITALS: BP 109/82
[2024-01-15 23:55] VITALS: BP 125/87
[2024-01-16] VITALS (9 sets, daily range): BP systolic 108–138; BP diastolic 77–120
--- NOTE | 2024-01-16 05:48 | NUR ---
1915 Assumed care of pt, bedside report completed. Shift plan of care reviewed woth pt, all questions answered. 2330 and 2 small children in to visit pt. Exception to visitor policy made as children both under 5 and have not seen pt in 2 days. Father to remain in control of children and committed to stress free visit for pt. 0130 Family has left for the night. Pt now reports level 8/10 headache and increased WOB/RR very similar to admission symptoms, though is denying any chest pain at this time. Medicated with Tylenol for pain and Ambien for pt to be able to try and get some rest prior to Angio this AM. Has been NPO since midnoc. 0330 Pt appears to be asleep at this time, will continue to monitor. 0600 Continues to be resting comfortably in bed. Awakend for AM labs to be drawn via [facility] Powerglide. Heparin gtt continues per pharmacy direction. Please see full assessment for additional details. No further complaints or concerns at this time, will continue to monitor.
[2024-01-16] MEDS ORDERED: Verapamil HCL 2.5 MG/ML 2ML Injection ONE (06:18)
[2024-01-16] MEDS ORDERED: Heparin Sodium 1000 Units/ML 10ML MDV ONE (06:18)
[2024-01-16] MEDS ORDERED: NS 250 ML IV ONE (06:19)
[2024-01-16] MEDS ORDERED: NS 2,000 ML IV ONE (06:19)
[2024-01-16] MEDS ORDERED: Nitroglycerin 2 MG/20 ML BTL ONE (06:20)
[2024-01-16 06:31] LABS: Hematocrit 35.3 % (33.0-51.0); Hemoglobin 11.1 g/dL (11.5-16.0); Mean Platelet Volume 10.5 fL (9.1-12.4); Platelet Count 213 K/mm3 (150-400)
[2024-01-16] MEDS ORDERED: Midazolam HCl 1MG / ML 2ML Vial ONE ×2 (06:31→07:15)
[2024-01-16] MEDS ORDERED: FentaNYL Citrate 50 MCG/ML 2 ML Injection ONE (06:31)
--- NOTE | 2024-01-16 08:08 | NUR ---
AM NOTE PT ARRIVED TO PCU FROM TOOL AND DIE INSPECTOR AT APPROX. 0750. HR AND BP STABLE. THERE IS 11 ML OF AIR IN TR BAND WHICH WAS PLACED AT 0740 PER ORDERS. R RADIAL ACCESS SITE IS FREE FROM APPARENT BLEEDING OR HEMATOMA, PULSES ARE STRONG BILATERALLY. SHE REPORTS CHEST TIGHTNESS BUT DENIES CHEST PAIN. SHE ALSO REPORTED FEELINGS OF NAUSEA, ZOFRAN GIVEN PER EMAR ORDERS. SHE HAS BEEN EDUCATED BY THIS RN REGARDING POST ANGIO SITE CARE/LIMITING R ARM USE DUE TO PROCEDURE. CALL LIGHT IS W/IN REACH.
[2024-01-16] MEDS ORDERED: dilTIAZem HCL 120 MG CAP.CD PO SCH (09:00)
[2024-01-16] MEDS ORDERED: Acetaminophen650 M1 PO ×2 (09:56)
[2024-01-16] MEDS ORDERED: ASPI81CH PO ×2 (09:57)
[2024-01-16] MEDS ORDERED: DILT120 PO ×2 (09:59)
[2024-01-16] MEDS ORDERED: NITR100CA PO ×2 (10:56)
[2024-01-16] MEDS ORDERED: Isosorbide Mono30 MG PO ×2 (11:50)
--- NOTE | 2024-01-16 12:11 | NUR ---
UPDATE TR BAND FULLY RECOVERED. SITE CLEANED WITH CHLORHEXIDINE AND TEGADERM PLACED OVER. SITE FREE OF OOZING, TENDERNESS, OR HEMATOMA. PT DENIES NUMBNESS AND OR TINGLING. RIGHT HAND WARM TO THE TOUCH WITH PULSE PRESENT.
--- NOTE | 2024-01-16 13:11 | NUR ---
DISCHARGE NOTE PT WAS ALERT AND ORIENTED X 4 AND INDEPENDENT IN THE ROOM. VITAL SIGNS WERE STABLE, SHE WAS ON ROOM AIR. R RADIAL POST ANGIO ACCESS SITE REMAINED FREE FROM SIGNS OF APPARENT BLEEDING/HEMATOMA. TR BAND WAS REMOVED AND A TRANSPARENT DRESSING WAS PLACED ALONG W/ AN ARM BOARD. PT WAS EDUCATED BY THIS RN REGARDING DISCHARGE INSTRUCTIONS INCLUDING POST ANGIO ACCESS SITE CARE, FOLLOW UP APPOINTMENTS AND NEW MEDICATION REGIMEN. THIS RN ALSO REMOVED ALL IV ACCESS SITE. PT LEFT PCU W/ ALL OF PERSONAL BELONGINGS AT APPROX. 1300 AND WAS ESCORTED OUTSIDE VIA WHEELCHAIR BY THIS RN.
== END 2024-01-16 12:58 | disposition home or self-care (01) | DRG 287 ==
LOC: ER 02:31 → PCU 02:32
PROVIDERS: Emergency Medicine; ADMIT Internal Medicine
PROC: 4A023N7 Measurement of Cardiac Sampling and Pressure, Left Heart, Percutaneous Approach (ICD-10-PCS; principal; 2024-01-16)
PROC: B2111ZZ Fluoroscopy of Multiple Coronary Arteries using Low Osmolar Contrast (ICD-10-PCS; 2024-01-16)
DX: R07.89 Other chest pain (principal); N39.0 Urinary tract infection, site not specified; Z68.42 Body mass index [BMI] 45.0-49.9, adult; E66.9 Obesity, unspecified; F17.210 Nicotine dependence, cigarettes, uncomplicated; D72.829 Elevated white blood cell count, unspecified; F41.9 Anxiety disorder, unspecified; Z82.49 Family history of ischemic heart disease and other diseases of the circulatory system; F42.9 Obsessive-compulsive disorder, unspecified; K58.9 Irritable bowel syndrome, unspecified; Q05.9 Spina bifida, unspecified; I45.10 Unspecified right bundle-branch block; Z91.040 Latex allergy status; Z91.018 Allergy to other foods; Z79.899 Other long term (current) drug therapy; Z85.820 Personal history of malignant melanoma of skin; Z85.72 Personal history of non-Hodgkin lymphomas; Z92.21 Personal history of antineoplastic chemotherapy; Z92.3 Personal history of irradiation; Z87.19 Personal history of other diseases of the digestive system; Z90.49 Acquired absence of other specified parts of digestive tract; Z98.890 Other specified postprocedural states; Z98.51 Tubal ligation status
CPT/HCPCS: 0241U; 36200; 36415; 71045; 76937; 80053; 80061; 81001; 84484; 85014; 85018; 85025; 85049; 85520; 85610; 85730; 87077; 87086; 87186; 93005; 93010; 93454; 96361; 96374; 96375; 96376; 99152; 99153; 99285-25; A9270; C1769; C1887; C1894; G0378; J0696; J1644; J1885; J2250; J3010; J7030; J7050; Q9967

== ENCOUNTER 2024-01-17 04:46 | Emergency (ER) | payer OTHER ==
[~2024-01-17] VITALS: Ht 162.6 cm; Wt 121.6 kg
[~2024-01-17 04:46] MED LIST changes: +ASPI81CH PO; +Acetaminophen650 M1 PO; +DESV50 PO; +DILT120 PO; +Isosorbide Mono30 MG PO; +NITR100CA PO
[2024-01-17 06:05] LABS: BASOPHILS ABSOLUTE AUTO 0.05 K/mm3 (0.00-0.23); BASOPHILS PERCENT AUTO 0 % (0-2); EOSINOPHILS ABSOLUTE AUTO 0.16 K/mm3 (0.00-0.68); EOSINOPHILS PERCENT AUTO 1 % (0-6); Hemoglobin 13.5 g/dL (11.5-16.0); IMMATURE GRAN ABSOLUTE AUTO 0.15 K/mm3 (0.00-0.10); IMMATURE GRAN PERCENT AUTO 1 % (0-1); LYMPHOCYTES ABSOLUTE AUTO 1.91 K/mm3 (0.84-5.20); LYMPHOCYTES PERCENT AUTO 17 % (21-46); MONOCYTES ABSOLUTE AUTO 0.61 K/mm3 (0.16-1.47); MONOCYTES PERCENT AUTO 5 % (4-13); Mean Corpuscular HGB 24.9 pg (26.0-34.0); Mean Corpuscular HGB Conc 32.1 g/dL (31.5-36.5); Mean Corpuscular Volume 78 fL (80-100); Mean Platelet Volume 9.8 fL (9.1-12.4); NEUTROPHILS ABSOLUTE AUTO 8.56 K/mm3 (1.96-9.15); NEUTROPHILS PERCENT AUTO 75 % (41-73); Platelet Count 242 K/mm3 (150-400); RDW Coefficient Variation 15.9 % (11.7-14.2); RDW Standard Deviation 44.7 fL (35.1-46.3); Red Blood Cell Count 5.42 M/mm3 (3.80-5.20); White Blood Cell Count 11.44 K/mm3 (4.00-11.30)
[2024-01-17] MEDS ORDERED: Lactated Ringer's 1,000 ML IV ONE (06:25)
[2024-01-17] MEDS ORDERED: Acetaminophen 325 MG TABLET PO ONE (06:25)
[2024-01-17 06:34] LABS: Albumin, Blood 3.8 g/dL (3.4-5.0); Albumin/Globulin Ratio 0.8 (0.8-1.8); Bilirubin, Total 0.5 mg/dL (0.1-1.0); Bun/Creatinine Ratio 14.4 (12.0-20.0); Calcium, Blood 9.3 mg/dL (8.5-10.1); Creatinine, Blood 0.55 mg/dL (0.40-1.00); Globulin, Blood 4.5 g/dL (2.2-4.0); Potassium, Blood 4.1 mmol/L (3.5-5.5); Total Protein, Blood 8.3 g/dL (6.4-8.2)
[2024-01-17 07:45] VITALS: BP 118/78
== END 2024-01-17 07:55 | disposition home or self-care (01) ==
LOC: ER 04:46
PROVIDERS: Emergency Medicine
DX: R51.9 Headache, unspecified (principal); R11.2 Nausea with vomiting, unspecified
CPT/HCPCS: 80053; 84484; 85025; 93005; 93010; 96360; 99284-25; A9270; J7120

== ENCOUNTER → 2024-01-18 | Outpatient (CLI) | payer OTHER ==
[2024-01-19 13:41] LABS: Adenovirus F 40/41 Not Detected (NOT DETECT); Astrovirus Not Detected (NOT DETECT); Campylobacter Sp Not Detected (NOT DETECT); Cryptosporidium Not Detected (NOT DETECT); Cyclospora Cayetanensis Not Detected (NOT DETECT); E. Coli O157 Not Detected (NOT DETECT); Entamoeba Histolytica Not Detected (NOT DETECT); Enteroaggregative E. coli-EAEC Not Detected (NOT DETECT); Enteropathogenic E. coli-EPEC Not Detected (NOT DETECT); Enterotoxigenic E. coli-ETEC Not Detected (NOT DETECT); Giardia Lamblia Not Detected (NOT DETECT); Norovirus GI/GII Not Detected (NOT DETECT); Plesiomonas Shigelloides Not Detected (NOT DETECT); Rotavirus A Not Detected (NOT DETECT); Salmonella Sp Not Detected (NOT DETECT); Sapovirus Not Detected (NOT DETECT); Shiga Toxin-prod E. coli-STEC Not Detected (NOT DETECT); Shigella/Enteroin E. coli-EIEC Not Detected (NOT DETECT); Vibrio Cholerae Not Detected (NOT DETECT); Vibrio Sp Not Detected (NOT DETECT); Yersinia Enterocolitica Not Detected (NOT DETECT)
[2024-01-21 18:57] LABS: PANCREATIC ELASTASE,FECAL >800 ug/g (>=100)
[2024-01-21 19:00] LABS: CALPROTECTIN,FECAL 245 ug/g (<=49)
== END | disposition home or self-care (01) ==
LOC: LAB 11:00 → LAB SHORT 11:00
PROVIDERS: Physician Assistant
DX: K52.9 Noninfective gastroenteritis and colitis, unspecified (principal)
CPT/HCPCS: 82653; 83993; 87507

== ENCOUNTER → 2024-01-25 | Outpatient (CLI) | payer OTHER | END | disposition home or self-care (01) | LOC: LAB 11:20 → LAB SHORT 11:20 | DX: R30.0 Dysuria (principal) | CPT/HCPCS: 87086 ==

== ENCOUNTER 2024-03-04 04:14 | Emergency (ER) | payer OTHER ==
[~2024-03-04] VITALS: Ht 162.6 cm; Wt 121.6 kg
[2024-03-04 04:29] VITALS: BP 151/90
[2024-03-04 05:36] LABS: BASOPHILS ABSOLUTE AUTO 0.05 K/mm3 (0.00-0.23); BASOPHILS PERCENT AUTO 1 % (0-2); EOSINOPHILS ABSOLUTE AUTO 0.45 K/mm3 (0.00-0.68); EOSINOPHILS PERCENT AUTO 4 % (0-6); Hematocrit 41.7 % (33.0-51.0); Hemoglobin 13.1 g/dL (11.5-16.0); IMMATURE GRAN ABSOLUTE AUTO 0.05 K/mm3 (0.00-0.10); IMMATURE GRAN PERCENT AUTO 1 % (0-1); LYMPHOCYTES ABSOLUTE AUTO 2.94 K/mm3 (0.84-5.20); LYMPHOCYTES PERCENT AUTO 27 % (21-46); MONOCYTES ABSOLUTE AUTO 0.65 K/mm3 (0.16-1.47); MONOCYTES PERCENT AUTO 6 % (4-13); Mean Corpuscular HGB 24.9 pg (26.0-34.0); Mean Corpuscular HGB Conc 31.4 g/dL (31.5-36.5); Mean Corpuscular Volume 79 fL (80-100); Mean Platelet Volume 9.9 fL (9.1-12.4); NEUTROPHILS ABSOLUTE AUTO 6.83 K/mm3 (1.96-9.15); NEUTROPHILS PERCENT AUTO 62 % (41-73); Platelet Count 269 K/mm3 (150-400); RDW Coefficient Variation 14.3 % (11.7-14.2); RDW Standard Deviation 40.8 fL (35.1-46.3); Red Blood Cell Count 5.26 M/mm3 (3.80-5.20); White Blood Cell Count 10.97 K/mm3 (4.00-11.30)
[2024-03-04 05:55] LABS: Albumin, Blood 3.3 g/dL (3.4-5.0); Albumin/Globulin Ratio 0.8 (0.8-1.8); Bilirubin, Total 0.3 mg/dL (0.1-1.0); Bun/Creatinine Ratio 24.7 (12.0-20.0); Calcium, Blood 9.2 mg/dL (8.5-10.1); Creatinine, Blood 0.53 mg/dL (0.40-1.00); Globulin, Blood 4.3 g/dL (2.2-4.0); Potassium, Blood 4.3 mmol/L (3.5-5.5); Total Protein, Blood 7.6 g/dL (6.4-8.2)
[2024-03-04] MEDS ORDERED: Acetaminophen 500 MG Tab PO ONE (06:25)
[2024-03-04] MEDS ORDERED: Ondansetron HCl 2 MG / ML 2ML Vial IV ONE (06:25)
[2024-03-04] MEDS ORDERED: NS 1,000 ML IV SCH (06:25)
[2024-03-04 06:40] LABS: Magnesium, Blood 2.4 mg/dL (1.6-2.4)
[2024-03-04 06:54] LABS: Source, Urine Clean Catch
[2024-03-04 07:02] LABS: Bilirubin, Urine Neg (Neg); Blood, Urine Neg (Neg); Glucose Qualitative, Urine Neg (Neg); Ketones, Urine Neg (Neg); Leukocyte Esterase, Urine Neg (Neg); Nitrite, Urine Neg (Neg); Protein, Urine Neg (Neg); Specific Gravity, Urine 1.005 (1.003-1.022); Urobilinogen, Urine NORM (Normal)
[2024-03-04 07:03] LABS: Appearance, Urine Clear (Clear); Color, Urine Yellow (P-Yellow)
[2024-03-04] MEDS ORDERED: Morphine Sulfate 4 MG/1 ML Injection IV ONE (09:40)
[2024-03-04] MEDS ORDERED: ACET500 PO (09:47)
[2024-03-04] MEDS ORDERED: IBUP600 PO (09:47)
[2024-03-04] MEDS ORDERED: CEPH500 PO (09:47)
[2024-03-04] MEDS ORDERED: ONDA4ODT MM (09:47)
== END 2024-03-04 10:34 | disposition home or self-care (01) ==
LOC: ER 04:14
PROVIDERS: Emergency Medicine
DX: N12 Tubulo-interstitial nephritis, not specified as acute or chronic (principal); Z79.899 Other long term (current) drug therapy; Z91.040 Latex allergy status; Z91.018 Allergy to other foods
CPT/HCPCS: 36415; 74177; 80053; 81003; 81025; 83690; 83735; 85025; A9270; J2270; J2405; J7030; Q9967

== ENCOUNTER 2024-03-05 22:14 | Emergency (ER) | payer OTHER ==
[~2024-03-05] VITALS: Ht 162.6 cm; Wt 121.6 kg
[~2024-03-05 22:14] MED LIST changes: +ACET500 PO; +IBUP600 PO
[2024-03-05 22:56] LABS: BASOPHILS ABSOLUTE AUTO 0.07 K/mm3 (0.00-0.23); BASOPHILS PERCENT AUTO 1 % (0-2); EOSINOPHILS ABSOLUTE AUTO 0.41 K/mm3 (0.00-0.68); EOSINOPHILS PERCENT AUTO 4 % (0-6); Hematocrit 41.5 % (33.0-51.0); Hemoglobin 13.2 g/dL (11.5-16.0); IMMATURE GRAN ABSOLUTE AUTO 0.03 K/mm3 (0.00-0.10); IMMATURE GRAN PERCENT AUTO 0 % (0-1); LYMPHOCYTES ABSOLUTE AUTO 2.29 K/mm3 (0.84-5.20); LYMPHOCYTES PERCENT AUTO 22 % (21-46); MONOCYTES ABSOLUTE AUTO 0.56 K/mm3 (0.16-1.47); MONOCYTES PERCENT AUTO 6 % (4-13); Mean Corpuscular HGB 24.8 pg (26.0-34.0); Mean Corpuscular HGB Conc 31.8 g/dL (31.5-36.5); Mean Corpuscular Volume 78 fL (80-100); Mean Platelet Volume 9.7 fL (9.1-12.4); NEUTROPHILS ABSOLUTE AUTO 6.87 K/mm3 (1.96-9.15); NEUTROPHILS PERCENT AUTO 67 % (41-73); Platelet Count 260 K/mm3 (150-400); RDW Coefficient Variation 14.3 % (11.7-14.2); RDW Standard Deviation 39.9 fL (35.1-46.3); Red Blood Cell Count 5.32 M/mm3 (3.80-5.20); White Blood Cell Count 10.23 K/mm3 (4.00-11.30)
[2024-03-05 23:23] LABS: Albumin, Blood 3.3 g/dL (3.4-5.0); Albumin/Globulin Ratio 0.8 (0.8-1.8); Bilirubin, Total 0.2 mg/dL (0.1-1.0); Bun/Creatinine Ratio 17.8 (12.0-20.0); Calcium, Blood 9.2 mg/dL (8.5-10.1); Creatinine, Blood 0.68 mg/dL (0.40-1.00); Globulin, Blood 4.2 g/dL (2.2-4.0); Potassium, Blood 4.4 mmol/L (3.5-5.5); Total Protein, Blood 7.5 g/dL (6.4-8.2)
[2024-03-06 01:35] LABS: Source, Urine Clean Catch
[2024-03-06 02:19] LABS: Bilirubin, Urine Neg (Neg); Blood, Urine Neg (Neg); Glucose Qualitative, Urine Neg (Neg); Ketones, Urine Neg (Neg); Leukocyte Esterase, Urine Neg (Neg); Nitrite, Urine Pos (Neg); Protein, Urine Neg (Neg); Specific Gravity, Urine 1.015 (1.003-1.022); Urobilinogen, Urine NORM (Normal)
[2024-03-06 02:26] LABS: Appearance, Urine Hazy (Clear); Color, Urine Yellow (P-Yellow)
[2024-03-06 02:27] LABS: Bacteria Many /hpf; Red Blood Cells, Urine 0-2 /hpf (0-2); Squamous Epithelial Cells Few /hpf (Few)
[2024-03-06 04:30] VITALS: BP 131/82
[2024-03-06] MEDS ORDERED: PANT40 PO (04:30)
[2024-03-06] MEDS ORDERED: ALMACONE SUSPE355 ML PO (04:30)
[2024-03-06] MEDS ORDERED: Pantoprazole Sodium 40 MG Injection IV ONE (04:30)
[2024-03-06] MEDS ORDERED: Pantoprazole Sodium 40 MG Tab PO ONE (04:40)
== END 2024-03-06 04:45 | disposition home or self-care (01) ==
LOC: ER 22:14
PROVIDERS: Emergency Medicine
DX: R10.13 Epigastric pain (principal); N39.0 Urinary tract infection, site not specified; Z91.040 Latex allergy status; Z91.018 Allergy to other foods; Z79.899 Other long term (current) drug therapy; Z79.82 Long term (current) use of aspirin
CPT/HCPCS: 80053; 81001; 83690; 85025; A9270; J2470

== ENCOUNTER → 2024-03-08 | Outpatient (CLI) | payer OTHER ==
[~2024-03-08] MED LIST changes: +ALMACONE SUSPE355 ML PO; +CARAFATE1 GM/10 M1 PO; +PANT40 PO; +TRAM50 PO
[2024-03-08 16:38] LABS: BASOPHILS ABSOLUTE AUTO 0.05 K/mm3 (0.00-0.23); BASOPHILS PERCENT AUTO 1 % (0-2); EOSINOPHILS ABSOLUTE AUTO 0.47 K/mm3 (0.00-0.68); EOSINOPHILS PERCENT AUTO 4 % (0-6); Hematocrit 42.1 % (33.0-51.0); Hemoglobin 13.7 g/dL (11.5-16.0); IMMATURE GRAN ABSOLUTE AUTO 0.03 K/mm3 (0.00-0.10); IMMATURE GRAN PERCENT AUTO 0 % (0-1); LYMPHOCYTES ABSOLUTE AUTO 2.86 K/mm3 (0.84-5.20); LYMPHOCYTES PERCENT AUTO 27 % (21-46); MONOCYTES ABSOLUTE AUTO 0.57 K/mm3 (0.16-1.47); MONOCYTES PERCENT AUTO 5 % (4-13); Mean Corpuscular HGB Conc 32.5 g/dL (31.5-36.5); Mean Corpuscular Volume 77 fL (80-100); NEUTROPHILS ABSOLUTE AUTO 6.77 K/mm3 (1.96-9.15); NEUTROPHILS PERCENT AUTO 63 % (41-73); Platelet Count 257 K/mm3 (150-400); RDW Coefficient Variation 14.5 % (11.7-14.2); RDW Standard Deviation 39.8 fL (35.1-46.3); Red Blood Cell Count 5.47 M/mm3 (3.80-5.20); White Blood Cell Count 10.75 K/mm3 (4.00-11.30)
[2024-03-08 16:49] LABS: Albumin, Blood 3.4 g/dL (3.4-5.0); Albumin/Globulin Ratio 0.8 (0.8-1.8); Alk Phos 95 U/L (40-126); Anion Gap 12 mmol/L (6-16); Aspartate Aminotrans (AST/SGOT 16 U/L (12-37); Bilirubin, Total 0.4 mg/dL (0.1-1.0); Blood Urea Nitrogen 15 mg/dL (8-24); Bun/Creatinine Ratio 21.1 (12.0-20.0); CO2, Blood 24 mmol/L (21-32); Calcium, Blood 8.7 mg/dL (8.5-10.1); Chloride, Blood 106 mmol/L (98-108); Creatinine, Blood 0.71 mg/dL (0.40-1.00); Globulin, Blood 4.4 g/dL (2.2-4.0); Glomerular Filtration Rate 119 (60-); Glucose, Blood 85 mg/dL (70-99); Sodium, Blood 138 mmol/L (136-145); Total Protein, Blood 7.8 g/dL (6.4-8.2)
[2024-03-08 16:56] LABS: Alanine Aminotransfer (ALT/SGP <6 U/L (12-78)
== END ==
LOC: LAB 16:34 → LAB SHORT 16:34
PROVIDERS: Family Medicine
DX: R10.13 Epigastric pain (principal)
CPT/HCPCS: 80053; 85025

== ENCOUNTER 2024-03-11 19:31 | Emergency (ER) | payer OTHER ==
[~2024-03-11] VITALS: Ht 162.6 cm; Wt 121.6 kg
[~2024-03-11 19:31] MED LIST changes: -CARAFATE1 GM/10 M1 PO; -TRAM50 PO
[2024-03-11 20:31] LABS: BASOPHILS ABSOLUTE AUTO 0.04 K/mm3 (0.00-0.23); BASOPHILS PERCENT AUTO 0 % (0-2); EOSINOPHILS ABSOLUTE AUTO 0.39 K/mm3 (0.00-0.68); EOSINOPHILS PERCENT AUTO 4 % (0-6); Hematocrit 40.2 % (33.0-51.0); IMMATURE GRAN ABSOLUTE AUTO 0.03 K/mm3 (0.00-0.10); IMMATURE GRAN PERCENT AUTO 0 % (0-1); LYMPHOCYTES ABSOLUTE AUTO 3.12 K/mm3 (0.84-5.20); LYMPHOCYTES PERCENT AUTO 32 % (21-46); MONOCYTES ABSOLUTE AUTO 0.62 K/mm3 (0.16-1.47); MONOCYTES PERCENT AUTO 6 % (4-13); Mean Corpuscular HGB 25.1 pg (26.0-34.0); Mean Corpuscular HGB Conc 32.3 g/dL (31.5-36.5); Mean Corpuscular Volume 78 fL (80-100); NEUTROPHILS ABSOLUTE AUTO 5.49 K/mm3 (1.96-9.15); NEUTROPHILS PERCENT AUTO 57 % (41-73); RDW Coefficient Variation 14.6 % (11.7-14.2); RDW Standard Deviation 40.6 fL (35.1-46.3); Red Blood Cell Count 5.18 M/mm3 (3.80-5.20); White Blood Cell Count 9.69 K/mm3 (4.00-11.30)
[2024-03-11 20:37] LABS: Mean Platelet Volume 11.5 fL (9.1-12.4); Platelet Count 234 K/mm3 (150-400)
[2024-03-11 21:30] VITALS: BP 126/77
[2024-03-11] MEDS ORDERED: NS 1,000 ML IV SCH (22:25)
[2024-03-11] MEDS ORDERED: Droperidol 5 mg/2 ml Vial IV ONE (22:25)
[2024-03-11] MEDS ORDERED: CefTRIAXone Sodium 1,000 MG in NS 100 ML IV ONE (22:25)
[2024-03-11] MEDS ORDERED: Lidocaine 2% Viscous Soln 15 ML UDC PO ONE (22:30)
[2024-03-11] MEDS ORDERED: FentaNYL Citrate 50 MCG/ML 2 ML Injection IV ONE (22:30)
[2024-03-11] MEDS ORDERED: Atropine/Scopalam/Hyoscam/PB 5 ML UDC PO ONE (22:30)
[2024-03-11] MEDS ORDERED: Mag Hydrox/AL Hydrox/Simeth 30 ML UDC PO ONE (22:30)
[2024-03-11 22:32] LABS: Albumin, Blood 3.4 g/dL (3.4-5.0); Albumin/Globulin Ratio 0.8 (0.8-1.8); Bilirubin, Total 0.4 mg/dL (0.1-1.0); Bun/Creatinine Ratio 24.4 (12.0-20.0); Calcium, Blood 9.4 mg/dL (8.5-10.1); Creatinine, Blood 0.53 mg/dL (0.40-1.00); Globulin, Blood 4.2 g/dL (2.2-4.0); Potassium, Blood 5.2 mmol/L (3.5-5.5); Total Protein, Blood 7.6 g/dL (6.4-8.2)
[2024-03-11] MEDS ORDERED: TRAM50 PO (23:56)
[2024-03-11] MEDS ORDERED: CARAFATE1 GM/10 M1 PO (23:56)
== END 2024-03-12 01:05 | disposition home or self-care (01) ==
LOC: ER 19:31
PROVIDERS: Emergency Medicine; Student in an Organized Health Care Education/Training Program
DX: R11.2 Nausea with vomiting, unspecified (principal); R10.13 Epigastric pain; T39.395A Adverse effect of other nonsteroidal anti-inflammatory drugs [NSAID], initial encounter; Z91.018 Allergy to other foods; Z91.040 Latex allergy status; Z79.899 Other long term (current) drug therapy
CPT/HCPCS: 80053; 83690; 85025; 96365; 96375; 99284-25; A9270; J0696; J1790; J3010; J7030

== ENCOUNTER 2024-09-03 00:36 | Emergency (ER) | payer OTHER ==
[~2024-09-03] VITALS: Ht 162.6 cm; Wt 121.6 kg
[~2024-09-03 00:36] MED LIST changes: +Aspir 8181 MG PO; +CARAFATE1 GM/10 M1 PO; +CYCL10 PO; +GABA100 PO; +TRAM50 PO
[2024-09-03 03:01] LABS: BASOPHILS ABSOLUTE AUTO 0.03 K/mm3 (0.00-0.23); BASOPHILS PERCENT AUTO 1 % (0-2); EOSINOPHILS ABSOLUTE AUTO 0.29 K/mm3 (0.00-0.68); EOSINOPHILS PERCENT AUTO 5 % (0-6); Hematocrit 42.7 % (33.0-51.0); Hemoglobin 13.8 g/dL (11.5-16.0); IMMATURE GRAN ABSOLUTE AUTO 0.02 K/mm3 (0.00-0.10); IMMATURE GRAN PERCENT AUTO 0 % (0-1); LYMPHOCYTES ABSOLUTE AUTO 2.16 K/mm3 (0.84-5.20); LYMPHOCYTES PERCENT AUTO 40 % (21-46); MONOCYTES ABSOLUTE AUTO 0.61 K/mm3 (0.16-1.47); MONOCYTES PERCENT AUTO 11 % (4-13); Mean Corpuscular HGB Conc 32.3 g/dL (31.5-36.5); Mean Corpuscular Volume 81 fL (80-100); Mean Platelet Volume 10.5 fL (9.1-12.4); NEUTROPHILS ABSOLUTE AUTO 2.31 K/mm3 (1.96-9.15); NEUTROPHILS PERCENT AUTO 42 % (41-73); Platelet Count 208 K/mm3 (150-400); RDW Coefficient Variation 14.3 % (11.7-14.2); RDW Standard Deviation 41.2 fL (35.1-46.3); White Blood Cell Count 5.42 K/mm3 (4.00-11.30)
[2024-09-03 03:21] LABS: Albumin, Blood 3.4 g/dL (3.4-5.0); Albumin/Globulin Ratio 0.8 (0.8-1.8); Bilirubin, Total 0.3 mg/dL (0.1-1.0); Bun/Creatinine Ratio 16.6 (12.0-20.0); Calcium, Blood 8.1 mg/dL (8.5-10.1); Creatinine, Blood 0.6 mg/dL (0.40-1.00); Globulin, Blood 4.4 g/dL (2.2-4.0); Potassium, Blood 3.7 mmol/L (3.5-5.5); Total Protein, Blood 7.8 g/dL (6.4-8.2)
[2024-09-03] MEDS ORDERED: Albuterol HFA200 ACT/6.7 GM INH INH ONE (06:05)
[2024-09-03] MEDS ORDERED: Dexamethasone Sod Phos 10 MG/ML 1ML VIAL IV ONE (06:05)
[2024-09-03] MEDS ORDERED: ALBU90OI INH (06:24)
[2024-09-03] MEDS ORDERED: PRED20 PO (06:24)
[2024-09-03 07:00] VITALS: BP 153/74
== END 2024-09-03 07:25 | disposition home or self-care (01) ==
LOC: ER 00:36
PROVIDERS: Emergency Medicine
DX: J40 Bronchitis, not specified as acute or chronic (principal); R07.9 Chest pain, unspecified; Z91.040 Latex allergy status; Z91.018 Allergy to other foods; Z79.82 Long term (current) use of aspirin; Z79.899 Other long term (current) drug therapy
CPT/HCPCS: 71046; 80053; 84484; 85025; 93005; 93010; 94640; 94664; 96374; 99284-25; A9270; J1100

== ENCOUNTER 2024-10-18 23:49 | Emergency (ER) | payer OTHER ==
[~2024-10-18] VITALS: Ht 162.6 cm; Wt 118.8 kg
[~2024-10-18 23:49] MED LIST changes: +ALBU90OI INH; +PRED20 PO
[2024-10-19] MEDS ORDERED: Ondansetron HCl 2 MG / ML 2ML Vial IV ONE (00:15)
[2024-10-19 01:18] VITALS: BP 113/66
[2024-10-19 01:18] LABS: BASOPHILS ABSOLUTE AUTO 0.05 K/mm3 (0.00-0.23); BASOPHILS PERCENT AUTO 1 % (0-2); EOSINOPHILS ABSOLUTE AUTO 0.15 K/mm3 (0.00-0.68); EOSINOPHILS PERCENT AUTO 1 % (0-6); Hemoglobin 13.4 g/dL (11.5-16.0); IMMATURE GRAN ABSOLUTE AUTO 0.03 K/mm3 (0.00-0.10); IMMATURE GRAN PERCENT AUTO 0 % (0-1); LYMPHOCYTES ABSOLUTE AUTO 2.78 K/mm3 (0.84-5.20); LYMPHOCYTES PERCENT AUTO 26 % (21-46); MONOCYTES ABSOLUTE AUTO 0.83 K/mm3 (0.16-1.47); MONOCYTES PERCENT AUTO 8 % (4-13); Mean Corpuscular HGB 26.3 pg (26.0-34.0); Mean Corpuscular HGB Conc 32.7 g/dL (31.5-36.5); Mean Corpuscular Volume 81 fL (80-100); NEUTROPHILS ABSOLUTE AUTO 6.89 K/mm3 (1.96-9.15); NEUTROPHILS PERCENT AUTO 64 % (41-73); Platelet Count 257 K/mm3 (150-400); RDW Coefficient Variation 14.6 % (11.7-14.2); RDW Standard Deviation 42.8 fL (35.1-46.3); Red Blood Cell Count 5.09 M/mm3 (3.80-5.20); White Blood Cell Count 10.73 K/mm3 (4.00-11.30)
[2024-10-19 01:36] LABS: D-Dimer, Quantitative 0.26 mg/L FEU (0.00-0.52)
[2024-10-19 01:39] LABS: Albumin, Blood 3.4 g/dL (3.4-5.0); Albumin/Globulin Ratio 0.8 (0.8-1.8); Bilirubin, Total 0.5 mg/dL (0.1-1.0); Calcium, Blood 8.9 mg/dL (8.5-10.1); Creatinine, Blood 0.59 mg/dL (0.40-1.00); Total Protein, Blood 7.4 g/dL (6.4-8.2)
[2024-10-19] MEDS ORDERED: Gabapentin 300 MG Cap PO ONE (02:50)
[2024-10-19] MEDS ORDERED: Ketorolac Tromethamine 15mg Vial IV ONE (02:50)
[2024-10-19] MEDS ORDERED: Dexamethasone Sod Phos 10 MG/ML 1ML VIAL PO ONE (02:50)
[2024-10-19] MEDS ORDERED: Acetaminophen 500 MG Tab PO ONE (02:50)
== END 2024-10-19 03:46 | disposition home or self-care (01) ==
LOC: ER 23:49
PROVIDERS: Student in an Organized Health Care Education/Training Program
DX: M54.42 Lumbago with sciatica, left side (principal); M54.10 Radiculopathy, site unspecified; Z79.82 Long term (current) use of aspirin; Z79.52 Long term (current) use of systemic steroids; Z79.899 Other long term (current) drug therapy; Z91.040 Latex allergy status; Z91.018 Allergy to other foods
CPT/HCPCS: 80053; 83880; 85025; 85379; 85730; 93005; 93010; 93971; 96374; 96375; 99284-25; A9270; J1100; J1885; J2405

== ENCOUNTER 2025-01-05 00:13 | Emergency (ER) | payer OTHER ==
[~2025-01-05] VITALS: Ht 162.6 cm; Wt 117.9 kg
[2025-01-05] MEDS ORDERED: OXYB5 PO (00:39)
[2025-01-05] MEDS ORDERED: PREG150 PO (00:40)
[2025-01-05] MEDS ORDERED: VILAZODONE HCL40 MG PO (00:40)
[2025-01-05 01:28] LABS: Alanine Aminotransfer (ALT/SGP 24.0 U/L (12-78); Albumin, Blood 3.3 g/dL (3.4-5.0); Albumin/Globulin Ratio 0.9 (0.8-1.8); Anion Gap 10.0 mmol/L (3-11); Aspartate Aminotrans (AST/SGOT 19.0 U/L (12-37); Bilirubin, Total 0.3 mg/dL (0.1-1.0); Blood Urea Nitrogen 11.0 mg/dL (8-24); CO2, Blood 22.0 mmol/L (21-32); Calcium, Blood 8.0 mg/dL (8.5-10.1); Chloride, Blood 111.0 mmol/L (98-108); Creatinine, Blood 0.67 mg/dL (0.40-1.00); Globulin, Blood 3.6 g/dL (2.2-4.0); Glucose, Blood 97.0 mg/dL (70-99); Potassium, Blood 4.1 mmol/L (3.5-5.5); Sodium, Blood 139.0 mmol/L (136-145); Total Protein, Blood 6.9 g/dL (6.4-8.2)
[2025-01-05] MEDS ORDERED: Prochlorperazine Edisylate 10 mg Vial IV ONE (04:00)
[2025-01-05] MEDS ORDERED: DiphenhydrAMINE HCl 50 MG/ML 1ML Vial IV ONE (04:00)
[2025-01-05] MEDS ORDERED: Ketorolac Tromethamine 15mg Vial IV ONE (04:00)
[2025-01-05] MEDS ORDERED: NS 1,000 ML IV SCH (04:00)
[2025-01-05] MEDS ORDERED: Dexamethasone Sod Phos 10 MG/ML 1ML VIAL IV ONE (04:00)
[2025-01-05 05:25] LABS: BASOPHILS ABSOLUTE AUTO 0.05 K/mm3 (0.00-0.23); BASOPHILS PERCENT AUTO 1 % (0-2); EOSINOPHILS ABSOLUTE AUTO 0.24 K/mm3 (0.00-0.68); EOSINOPHILS PERCENT AUTO 3 % (0-6); Hematocrit 39.2 % (33.0-51.0); Hemoglobin 12.8 g/dL (11.5-16.0); IMMATURE GRAN ABSOLUTE AUTO 0.02 K/mm3 (0.00-0.10); IMMATURE GRAN PERCENT AUTO 0 % (0-1); LYMPHOCYTES ABSOLUTE AUTO 2.74 K/mm3 (0.84-5.20); LYMPHOCYTES PERCENT AUTO 30 % (21-46); MONOCYTES ABSOLUTE AUTO 0.57 K/mm3 (0.16-1.47); MONOCYTES PERCENT AUTO 6 % (4-13); Mean Corpuscular HGB Conc 32.7 g/dL (31.5-36.5); Mean Corpuscular Volume 82 fL (80-100); NEUTROPHILS ABSOLUTE AUTO 5.47 K/mm3 (1.96-9.15); NEUTROPHILS PERCENT AUTO 60 % (41-73); NRBC ABSOLUTE 0.00 K/mm3 (0.00-0.02); NRBC Auto 0.0 /100 WBC (0.0-0.2); Platelet Count 240 K/mm3 (150-400); RDW Coefficient Variation 13.6 % (11.7-14.2); RDW Standard Deviation 40.5 fL (35.1-46.3)
[2025-01-05 06:00] VITALS: BP 108/63
== END 2025-01-05 07:27 | disposition home or self-care (01) ==
LOC: ER 00:13
PROVIDERS: Emergency Medicine
DX: G43.009 Migraine without aura, not intractable, without status migrainosus (principal); Z79.899 Other long term (current) drug therapy; Z91.040 Latex allergy status; Z91.018 Allergy to other foods
CPT/HCPCS: 70450; 80053; 85025; 96374; 96375; 99284-25; A9270; J0780; J1100; J1200; J1885; J7030

== ENCOUNTER 2025-02-02 23:05 | Emergency (ER) | payer OTHER ==
[~2025-02-02] VITALS: Ht 162.6 cm; Wt 113.4 kg
[~2025-02-02 23:05] MED LIST changes: +OXYB5 PO; +PREG150 PO; +VILAZODONE HCL40 MG PO
[2025-02-03 01:38] VITALS: BP 144/80
[2025-02-03] MEDS ORDERED: NS 1,000 ML IV SCH (05:10)
[2025-02-03] MEDS ORDERED: Dexamethasone Sod Phos 10 MG/ML 1ML VIAL IV ONE ×3 (05:10→07:45)
[2025-02-03] MEDS ORDERED: Ketorolac Tromethamine 15mg Vial IV ONE ×2 (05:10→07:40)
[2025-02-03 08:14] LABS: BASOPHILS ABSOLUTE AUTO 0.05 K/mm3 (0.00-0.23); BASOPHILS PERCENT AUTO 1 % (0-2); EOSINOPHILS ABSOLUTE AUTO 0.24 K/mm3 (0.00-0.68); EOSINOPHILS PERCENT AUTO 3 % (0-6); Hematocrit 37.8 % (33.0-51.0); Hemoglobin 12.4 g/dL (11.5-16.0); IMMATURE GRAN ABSOLUTE AUTO 0.03 K/mm3 (0.00-0.10); IMMATURE GRAN PERCENT AUTO 0 % (0-1); LYMPHOCYTES ABSOLUTE AUTO 3.28 K/mm3 (0.84-5.20); LYMPHOCYTES PERCENT AUTO 34 % (21-46); MONOCYTES ABSOLUTE AUTO 0.62 K/mm3 (0.16-1.47); MONOCYTES PERCENT AUTO 6 % (4-13); Mean Corpuscular HGB Conc 32.8 g/dL (31.5-36.5); Mean Corpuscular Volume 81 fL (80-100); NEUTROPHILS ABSOLUTE AUTO 5.42 K/mm3 (1.96-9.15); NEUTROPHILS PERCENT AUTO 56 % (41-73); NRBC ABSOLUTE 0.00 K/mm3 (0.00-0.02); NRBC Auto 0.0 /100 WBC (0.0-0.2); Platelet Count 251 K/mm3 (150-400); RDW Coefficient Variation 13.7 % (11.7-14.2); RDW Standard Deviation 40.2 fL (35.1-46.3)
[2025-02-03 08:40] LABS: Alanine Aminotransfer (ALT/SGP 23.0 U/L (12-78); Albumin, Blood 3.0 g/dL (3.4-5.0); Albumin/Globulin Ratio 0.8 (0.8-1.8); Anion Gap 8.0 mmol/L (3-11); Aspartate Aminotrans (AST/SGOT 18.0 U/L (12-37); Bilirubin, Total 0.6 mg/dL (0.1-1.0); Blood Urea Nitrogen 15.0 mg/dL (8-24); C-Reactive Protein, High Sens. 11.5 mg/L (0.000-3.000); CO2, Blood 26.0 mmol/L (21-32); Calcium, Blood 8.1 mg/dL (8.5-10.1); Chloride, Blood 109.0 mmol/L (98-108); Creatinine, Blood 0.65 mg/dL (0.40-1.00); Globulin, Blood 3.6 g/dL (2.2-4.0); Glucose, Blood 85.0 mg/dL (70-99); Potassium, Blood 3.6 mmol/L (3.5-5.5); Sodium, Blood 139.0 mmol/L (136-145); Total Protein, Blood 6.6 g/dL (6.4-8.2)
== END 2025-02-03 08:43 | disposition home or self-care (01) ==
LOC: ER 23:05
PROVIDERS: Emergency Medicine
DX: G44.89 Other headache syndrome (principal); E86.0 Dehydration; Z91.040 Latex allergy status; Z91.018 Allergy to other foods; Z79.899 Other long term (current) drug therapy
CPT/HCPCS: 80053; 85025; 85651; 86141; 86592; A9270; J1100; J1885; J7030

== ENCOUNTER 2025-03-15 18:10 | Inpatient (IN) | payer OTHER ==
[~2025-03-15] VITALS: Ht 162.6 cm; Wt 123.2 kg
[2025-03-15] MEDS ORDERED: NS 1,000 ML IV SCH (19:00)
[2025-03-15] MEDS ORDERED: Ondansetron HCl 2 MG / ML 2ML Vial IV ONE (19:00)
[2025-03-15] MEDS ORDERED: Morphine Sulfate 4 MG/1 ML Injection IV ONE (19:00)
[2025-03-15 19:31] LABS: BASOPHILS ABSOLUTE AUTO 0.06 K/mm3 (0.00-0.23); BASOPHILS PERCENT AUTO 1 % (0-2); EOSINOPHILS ABSOLUTE AUTO 0.60 K/mm3 (0.00-0.68); EOSINOPHILS PERCENT AUTO 5 % (0-6); Hematocrit 40.9 % (33.0-51.0); Hemoglobin 13.8 g/dL (11.5-16.0); IMMATURE GRAN ABSOLUTE AUTO 0.04 K/mm3 (0.00-0.10); IMMATURE GRAN PERCENT AUTO 0 % (0-1); LYMPHOCYTES ABSOLUTE AUTO 3.24 K/mm3 (0.84-5.20); LYMPHOCYTES PERCENT AUTO 25 % (21-46); MONOCYTES ABSOLUTE AUTO 0.83 K/mm3 (0.16-1.47); MONOCYTES PERCENT AUTO 6 % (4-13); Mean Corpuscular HGB Conc 33.7 g/dL (31.5-36.5); Mean Corpuscular Volume 79 fL (80-100); NEUTROPHILS ABSOLUTE AUTO 8.43 K/mm3 (1.96-9.15); NEUTROPHILS PERCENT AUTO 64 % (41-73); NRBC ABSOLUTE 0.00 K/mm3 (0.00-0.02); NRBC Auto 0.0 /100 WBC (0.0-0.2); Platelet Count 269 K/mm3 (150-400); RDW Coefficient Variation 14.1 % (11.7-14.2); RDW Standard Deviation 40.6 fL (35.1-46.3)
[2025-03-15 19:52] LABS: Alanine Aminotransfer (ALT/SGP 26.0 U/L (12-78); Albumin, Blood 3.6 g/dL (3.4-5.0); Albumin/Globulin Ratio 1.0 (0.8-1.8); Anion Gap 7.0 mmol/L (3-11); Aspartate Aminotrans (AST/SGOT 13.0 U/L (12-37); Bilirubin, Total 0.3 mg/dL (0.1-1.0); Blood Urea Nitrogen 10.0 mg/dL (8-24); CO2, Blood 25.0 mmol/L (21-32); Calcium, Blood 9.0 mg/dL (8.5-10.1); Chloride, Blood 109.0 mmol/L (98-108); Creatinine, Blood 0.58 mg/dL (0.40-1.00); Globulin, Blood 3.7 g/dL (2.2-4.0); Glucose, Blood 102.0 mg/dL (70-99); Potassium, Blood 4.1 mmol/L (3.5-5.5); Sodium, Blood 137.0 mmol/L (136-145); Total Protein, Blood 7.3 g/dL (6.4-8.2)
[2025-03-15 20:39] LABS: Source, Urine Clean Catch
[2025-03-15 20:42] LABS: Bilirubin, Urine Neg (Neg); Glucose Qualitative, Urine Neg (Neg); Ketones, Urine Neg (Neg); Leukocyte Esterase, Urine Neg (Neg); Protein, Urine 1+ (Neg); Specific Gravity, Urine 1.010 (1.003-1.022); Urobilinogen, Urine NORM (Normal)
[2025-03-15 20:49] LABS: Color, Urine Pale Yellow (P-Yellow)
[2025-03-15] MEDS ORDERED: HYDROmorphone HCl/Pf 1MG SYR IV ONE (21:55)
[2025-03-15] MEDS ORDERED: Metoclopramide HCl 5MG / ML 2ML Vial IV ONE (21:55)
[2025-03-16] MEDS ORDERED: FLU VACC TS2025-26(6MOS UP)/PF 45 MCG/0.5 ML SYRINGE IM ONE (00:55)
[2025-03-16] MEDS ORDERED: Ondansetron HCl 2 MG / ML 2ML Vial IV PRN (00:55)
[2025-03-16] MEDS ORDERED: Metoclopramide HCl 5MG / ML 2ML Vial IV PRN (00:55)
[2025-03-16] MEDS ORDERED: HYDROmorphone HCl/Pf 1MG SYR IV PRN (00:55)
[2025-03-16] MEDS ORDERED: Naloxone HCl 0.4MG / ML 1ML Vial IV PRN (00:55)
[2025-03-16 01:49] VITALS: BP 112/74
[2025-03-16] MEDS ORDERED: ONDA4 (01:49)
--- NOTE | 2025-03-16 01:58 | NUR ---
PT ARRIVED FROM ED AT 0145. PT WEIGHED, TUCKED INTO BED, AND GIVEN A SNACK AT THIS TIME. REPORT TO BE GIVEN TO PRIMARY RN UPON HER RETURN.
[2025-03-16 04:04] VITALS: BP 122/74
--- NOTE | 2025-03-16 06:11 | NUR ---
Shift Summary Arrived to unit around 0145. Ambulatory, transferred self from [facility] to bed. AOx4. Pleasant. C/O 03/06 epigastric pain and persistent nausea, medicated per EMAR w/ good effect. Pt has neurogenic bladder and self caths q2-4 hours baseline. Settled to room. SBA to bathroom. Patient has bilateral clubbed feet, this is congenital. Hospital grippy socks provided. Patient tried to eat a snack and felt severe epigastric pain w/ nausea. Was not ableto tolerate anything PO at the moment. Seems to drink sips of water without much issue. No emesis, however. Advised to refrain from eating for now. Patient agreeable. Call light nearby. Bed in lowest position.
[2025-03-16 06:44] LABS: BASOPHILS ABSOLUTE AUTO 0.04 K/mm3 (0.00-0.23); BASOPHILS PERCENT AUTO 0 % (0-2); EOSINOPHILS ABSOLUTE AUTO 0.61 K/mm3 (0.00-0.68); EOSINOPHILS PERCENT AUTO 5 % (0-6); Hematocrit 42.6 % (33.0-51.0); Hemoglobin 13.9 g/dL (11.5-16.0); IMMATURE GRAN ABSOLUTE AUTO 0.03 K/mm3 (0.00-0.10); IMMATURE GRAN PERCENT AUTO 0 % (0-1); LYMPHOCYTES ABSOLUTE AUTO 3.17 K/mm3 (0.84-5.20); LYMPHOCYTES PERCENT AUTO 28 % (21-46); MONOCYTES ABSOLUTE AUTO 1.00 K/mm3 (0.16-1.47); MONOCYTES PERCENT AUTO 9 % (4-13); Mean Corpuscular HGB Conc 32.6 g/dL (31.5-36.5); Mean Corpuscular Volume 81 fL (80-100); NEUTROPHILS ABSOLUTE AUTO 6.50 K/mm3 (1.96-9.15); NEUTROPHILS PERCENT AUTO 57 % (41-73); NRBC ABSOLUTE 0.00 K/mm3 (0.00-0.02); NRBC Auto 0.0 /100 WBC (0.0-0.2); Platelet Count 227 K/mm3 (150-400); RDW Coefficient Variation 14.2 % (11.7-14.2); RDW Standard Deviation 41.5 fL (35.1-46.3)
[2025-03-16 07:24] VITALS: BP 132/90
[2025-03-16 07:38] LABS: Magnesium, Blood 2.2 mg/dL (1.6-2.4)
[2025-03-16 07:39] LABS: Alanine Aminotransfer (ALT/SGP 28.0 U/L (12-78); Albumin, Blood 3.4 g/dL (3.4-5.0); Albumin/Globulin Ratio 1.0 (0.8-1.8); Anion Gap 9.0 mmol/L (3-11); Aspartate Aminotrans (AST/SGOT 22.0 U/L (12-37); Bilirubin, Total 0.4 mg/dL (0.1-1.0); Blood Urea Nitrogen 8.0 mg/dL (8-24); CO2, Blood 24.0 mmol/L (21-32); Calcium, Blood 8.6 mg/dL (8.5-10.1); Chloride, Blood 110.0 mmol/L (98-108); Creatinine, Blood 0.59 mg/dL (0.40-1.00); Globulin, Blood 3.4 g/dL (2.2-4.0); Glucose, Blood 84.0 mg/dL (70-99); Potassium, Blood 3.3 mmol/L (3.5-5.5); Sodium, Blood 140.0 mmol/L (136-145); Total Protein, Blood 6.8 g/dL (6.4-8.2)
[2025-03-16] MEDS ORDERED: Enoxaparin 40 MG/0.4 ML SYR SC SCH (09:00)
[2025-03-16] MEDS ORDERED: ALBU8HFA2 INH (11:37)
[2025-03-16] MEDS ORDERED: [UNRECOGNIZED DRUG - OTHER] INH (11:38)
[2025-03-16] MEDS ORDERED: ALBUTEROL INH (11:38)
[2025-03-16] MEDS ORDERED: ASPIR 8181 M1 PO (11:39)
[2025-03-16] MEDS ORDERED: CARTIA XT120 M1 PO (11:40)
[2025-03-16] MEDS ORDERED: ISOSORBIDE MONO30 MG PO (11:41)
[2025-03-16] MEDS ORDERED: OXYB5 PO (11:42)
[2025-03-16] MEDS ORDERED: LYRICA150 M1 PO (11:43)
[2025-03-16] MEDS ORDERED: Imitrex100 MG PO (11:44)
--- NOTE | 2025-03-16 15:50 | NUR ---
SHIFT SUMMARY MS ACE C/O MID EPIGASTRIC SEVERE PAIN TODAY. SHE DESCRIBED IT FEELING LIKE SHE HAS BEEN KICKED BY A MULE. SHE ALSO C/O NAUSEA THAT SHE DESCRIBES MOTION SICKNESS. BOTH PAIN AND NAUSEA HAVE BEEN CONSTANT. SHE HAS BEEN GIVEN DILAUDID IV, REGLAN IV, ZOFRAN IV, PROTONIX, SUCRAFATE. SOMETIMES SHE IS PACING THE ROOM, SOMETIMES SHE LOOKS A LITTLE MORE SETTLED BUT SHE SAID THAT MEDICATION RELIEF IS HELPING MINIMALLY. SYMPTOMS DISCUSSED WITH DR LYON AND HE ADDED NEW MEDICATIONS. STOOL SAMPLE REQUESTED BUT NO STOOL YET. SHE SELF CATHS AND HAS CONTINUED TO DO THAT. SHE SHOWERED. SHE DESCRIBES HER GAIT A LITTLE OFF BALANCE AT BASELINE. SHE IS USING THE CALL LIGHT APPROPRIATELY.
[2025-03-16] MEDS ORDERED: Mag Hydrox/Al Hydrox/Simeth 18 ML,Lidocaine 2% Viscous Soln 9 ML,Atropine/Scopalam/Hyos... PO ONE ×2 (17:00→23:35)
[2025-03-16 17:21] VITALS: BP 116/87
[2025-03-16 20:53] VITALS: BP 116/77
[2025-03-16] MEDS ORDERED: Miconazole Nitrate 2% 85 GM PWD TOP SCH (21:00)
--- NOTE | 2025-03-16 23:37 | NUR ---
Physician Contact Patient c/o 04/05 epigastric pain unresolved with dilaudid. Called Shaan Hawkins NP because pt requesting for something else. Given patient is already on sulcralfate and protonix, and patient reported that a GI cocktail this afternoon helped trememdously, I recommended another GI cocktail. Received an order for one time dose of GI cocktail PO now. EMAR updated.
[2025-03-17 04:41] VITALS: BP 122/82
--- NOTE | 2025-03-17 05:45 | NUR ---
Shift Summary AOx4. Medicated w/ dilaudid for 10 epigastric pain with minimal relief. Obtained one time dose of GI cocktail which provided the most relief. Patient still unable to sleep much tonight. Also c/o LLQ abdominal pain possibly r/t constipation. Patient reports at baseline of having issues with diarrhea, but is concerned she may be constipated this go around. Pt already taking colace and unsure if she would want to take anything else yet. Ambulated the hallway a couple of times tonight. Still no bm. Patient reports last bm was day of admission 03/15.
[2025-03-17 08:05] VITALS: BP 122/83
[2025-03-17] MEDS ORDERED: Isosorbide Mononitrate 30 MG TABCR PO SCH (09:00)
[2025-03-17 09:09] LABS: BASOPHILS ABSOLUTE AUTO 0.03 K/mm3 (0.00-0.23); BASOPHILS PERCENT AUTO 0 % (0-2); EOSINOPHILS ABSOLUTE AUTO 0.38 K/mm3 (0.00-0.68); EOSINOPHILS PERCENT AUTO 5 % (0-6); Hematocrit 40.1 % (33.0-51.0); Hemoglobin 13.3 g/dL (11.5-16.0); IMMATURE GRAN ABSOLUTE AUTO 0.03 K/mm3 (0.00-0.10); IMMATURE GRAN PERCENT AUTO 0 % (0-1); LYMPHOCYTES ABSOLUTE AUTO 2.30 K/mm3 (0.84-5.20); LYMPHOCYTES PERCENT AUTO 28 % (21-46); MONOCYTES ABSOLUTE AUTO 0.38 K/mm3 (0.16-1.47); MONOCYTES PERCENT AUTO 5 % (4-13); Mean Corpuscular HGB Conc 33.2 g/dL (31.5-36.5); Mean Corpuscular Volume 81 fL (80-100); NEUTROPHILS ABSOLUTE AUTO 5.20 K/mm3 (1.96-9.15); NEUTROPHILS PERCENT AUTO 62 % (41-73); NRBC ABSOLUTE 0.00 K/mm3 (0.00-0.02); NRBC Auto 0.0 /100 WBC (0.0-0.2); Platelet Count 237 K/mm3 (150-400); RDW Coefficient Variation 14.3 % (11.7-14.2); RDW Standard Deviation 41.2 fL (35.1-46.3)
[2025-03-17] MEDS ORDERED: Mag Hydrox/Al Hydrox/Simeth 18 ML,Lidocaine 2% Viscous Soln 9 ML,Atropine/Scopalam/Hyos... PO ONE ×2 (09:15→20:35)
[2025-03-17 09:23] LABS: Alanine Aminotransfer (ALT/SGP 30.0 U/L (12-78); Albumin, Blood 3.4 g/dL (3.4-5.0); Albumin/Globulin Ratio 1.0 (0.8-1.8); Anion Gap 8.0 mmol/L (3-11); Aspartate Aminotrans (AST/SGOT 19.0 U/L (12-37); Bilirubin, Total 0.5 mg/dL (0.1-1.0); Blood Urea Nitrogen 9.0 mg/dL (8-24); CO2, Blood 28.0 mmol/L (21-32); Calcium, Blood 8.2 mg/dL (8.5-10.1); Chloride, Blood 106.0 mmol/L (98-108); Creatinine, Blood 0.59 mg/dL (0.40-1.00); Globulin, Blood 3.4 g/dL (2.2-4.0); Glucose, Blood 87.0 mg/dL (70-99); Potassium, Blood 3.6 mmol/L (3.5-5.5); Sodium, Blood 138.0 mmol/L (136-145); Total Protein, Blood 6.8 g/dL (6.4-8.2)
[2025-03-17] MEDS ORDERED: Sucralfate 1000MG / 10ML UD BTL PO SCH (11:48)
[2025-03-17 15:47] VITALS: BP 118/77
--- NOTE | 2025-03-17 18:07 | NUR ---
END OF SHIFT PT ALERT, ORIENTED, ABLE TO MAKE NEEDS KNOWN. PT IN CONSTANT PAIN IN ABD AREA. PRN NOT HELPFUL. MD AWARE. PT REFUSED LOVENOX THIS AM. PT GIVEN IV ZOFRAN AFTER EPISODES OF EMESIS AFTER BREAKFAST. NO FURTHER EPISODES NOTED. PT TO BE NPO AFTER MIDNIGHT FOR EGD TOMORROW.PT STRAIGHT CATH NEEDED. NO BM TODAY, PT AWARE STOOL SAMPLE STILL NEEDED. PT SAFELY INDEPENDENT IN ROOM.
--- NOTE | 2025-03-17 20:32 | NUR ---
Physician Contact Pt teararmond d/t 04/05 epigastric pain. No GI cocktail was ordered prn and patient is requesting it for some relief. Received a T.O. from Shaan Hawkins NP for One Time dose of GI cocktail PO. Order entered.
[2025-03-17 21:10] VITALS: BP 114/76
[2025-03-18] VITALS (8 sets, daily range): BP systolic 119–143; BP diastolic 60–89
--- NOTE | 2025-03-18 04:31 | NUR ---
Shift Summary AOx4. Nausea/Vomiting x 1, nonbloody emesis per patient, unmeasured. Sent stool sample in for testing. Still complains of 9/10 pain, relieved only temporarily with GI cocktail. Per patient, dilaudid barely touches it. Was able to sleep some tonight compared to last. IV is leaking, will need replaced, personnel technician Ryland is aware patient will be needing an large bore IV for her procedure today (EGD). NPO since midnight except some meds w/ sips of water.
[2025-03-18] MEDS ORDERED: Mag Hydrox/Al Hydrox/Simeth 18 ML,Lidocaine 2% Viscous Soln 9 ML,Atropine/Scopalam/Hyos... PO ONE ×2 (07:55→17:35)
[2025-03-18 07:58] LABS: BASOPHILS ABSOLUTE AUTO 0.04 K/mm3 (0.00-0.23); BASOPHILS PERCENT AUTO 0 % (0-2); EOSINOPHILS ABSOLUTE AUTO 0.54 K/mm3 (0.00-0.68); EOSINOPHILS PERCENT AUTO 5 % (0-6); Hematocrit 39.6 % (33.0-51.0); Hemoglobin 13.1 g/dL (11.5-16.0); IMMATURE GRAN ABSOLUTE AUTO 0.04 K/mm3 (0.00-0.10); IMMATURE GRAN PERCENT AUTO 0 % (0-1); LYMPHOCYTES ABSOLUTE AUTO 2.53 K/mm3 (0.84-5.20); LYMPHOCYTES PERCENT AUTO 25 % (21-46); MONOCYTES ABSOLUTE AUTO 0.60 K/mm3 (0.16-1.47); MONOCYTES PERCENT AUTO 6 % (4-13); Mean Corpuscular HGB Conc 33.1 g/dL (31.5-36.5); Mean Corpuscular Volume 81 fL (80-100); NEUTROPHILS ABSOLUTE AUTO 6.59 K/mm3 (1.96-9.15); NEUTROPHILS PERCENT AUTO 64 % (41-73); NRBC ABSOLUTE 0.00 K/mm3 (0.00-0.02); NRBC Auto 0.0 /100 WBC (0.0-0.2); Platelet Count 247 K/mm3 (150-400); RDW Coefficient Variation 14.4 % (11.7-14.2); RDW Standard Deviation 41.8 fL (35.1-46.3)
[2025-03-18 08:11] LABS: Alanine Aminotransfer (ALT/SGP 27.0 U/L (12-78); Albumin, Blood 3.2 g/dL (3.4-5.0); Albumin/Globulin Ratio 1.0 (0.8-1.8); Anion Gap 8.0 mmol/L (3-11); Aspartate Aminotrans (AST/SGOT 15.0 U/L (12-37); Bilirubin, Total 0.4 mg/dL (0.1-1.0); Blood Urea Nitrogen 8.0 mg/dL (8-24); CO2, Blood 26.0 mmol/L (21-32); Calcium, Blood 8.3 mg/dL (8.5-10.1); Chloride, Blood 110.0 mmol/L (98-108); Creatinine, Blood 0.6 mg/dL (0.40-1.00); Globulin, Blood 3.3 g/dL (2.2-4.0); Glucose, Blood 92.0 mg/dL (70-99); Potassium, Blood 3.8 mmol/L (3.5-5.5); Sodium, Blood 140.0 mmol/L (136-145); Total Protein, Blood 6.5 g/dL (6.4-8.2)
[2025-03-18 13:36] LABS: Source, Urine Straight Cath
[2025-03-18 13:46] LABS: Bilirubin, Urine Neg (Neg); Color, Urine Yellow (P-Yellow); Glucose Qualitative, Urine Neg (Neg); Ketones, Urine Neg (Neg); Leukocyte Esterase, Urine 3+ (Neg); Protein, Urine 1+ (Neg); Specific Gravity, Urine 1.015 (1.003-1.022); Urobilinogen, Urine NORM (Normal)
--- NOTE | 2025-03-18 13:57 | NUR ---
03/18/25 1357 Chente Sanchez History, Chart, Medications and Allergies reviewed before start of procedure.MONITOR INTACT WITH CONTINUOUS PULSE OXIMETRY, CONTINUOUS END TITAL CO2, 3-LEAD EKG AND INTERMITTENT BLOOD PRESSURE.3-LEAD EKG REVIEWED WITH PHYSICIAN PRIOR TO START OF PROCEDURE.O2 VIA POM INTACT THROUGHOUT SEDATION/PROCEDURE.See Anesthesia record.
[2025-03-18 14:17] LABS: White Blood Cells, Urine TNTC /hpf (0-5)
--- NOTE | 2025-03-18 16:10 | NUR ---
assumed care of pt pt npo and awaiting EGD today, message left with in pt surgery. dr Davis aware. epigastric pain treated with GI cocktail, aldo well, helped minimally with pain. pt self caths and has been c/o fowel smelling urine and increased darkness in color. will f/u with
--- NOTE | 2025-03-18 18:33 | NUR ---
1230 PT TO EGD
--- NOTE | 2025-03-18 18:37 | NUR ---
1315 PT BACK FROM EGD ELIANA WELL SOME GASTRITIS NOTED BX TAKEN NO ULCER SEEN ON EXAM. UA SENT A WAS POSITIVE. MD AWARE AND WILL LOOK OVER RESULTS. 1730 PT HAVING INCREASED ABD PAIN, MD AWARE STATED HE WOULD COME ASSESS PT. PT GIVEN GI COCKTAIL.
[2025-03-18] MEDS ORDERED: Morphine Sulfate 4 MG/1 ML Injection IV PRN (21:25)
--- NOTE | 2025-03-18 21:57 | NUR ---
CALL TO DR. MARTINEZ (WHEELCHAIR VAN DRIVER PROVIDER) REGARDING PT'S ABD PAIN THAT IS CONSISTENTLY PRESENT. PT REPORTS HAVING SEVERE ABD AND THROWING UP AND HAVING DIARRHEA. SHE STATES THE GI COCKTAIL HELPS FOR ONLY A SHORT PERIOD OF TIME. TELEPHONE ORDER RECEIVED TO GIVE MORPHINE IV PRN FOR PAIN.
[2025-03-18] MEDS ORDERED: FentaNYL Citrate 50 MCG/ML 2 ML Injection IV ONE (22:20)
[2025-03-18] MEDS ORDERED: FentaNYL Citrate 50 MCG/ML 2 ML Injection IV PRN (22:25)
--- NOTE | 2025-03-18 22:26 | NUR ---
CALLED HOSPITALIST DUE TO MORPHINE NOT HELPING WITH PAIN AND PAIN CONTINUING TO BE 10/10. HOSITALIST GAVE TELEPHONE ORDERS TO GIVE 2 G TUMS PO Q6 PRN, FENTANYL 50 MCG NOW AND FENTANYL 25 MCG Q4 PRN. ALSO DISCUSSED HOW PT DESCRIBES BURNING RADIATING UP CHEST C/W ACID REFLUX. HE RECOMMENDED MILK. DISCUSSED HOW PT HAS A CLEAR LIQUID DIET. HOSPITALIST V/U AND STATES TO GO AHEAD AND TRY THE MILK TO SEE IF THAT HELPS. WILL CONTINUE TO MONITOR.
[2025-03-18] MEDS ORDERED: CefTRIAXone Sodium 1,000 MG in NS 100 ML IV SCH (22:47)
[2025-03-18] MEDS ORDERED: NS 250 ML IV PRN (23:25)
[2025-03-19 05:14] VITALS: BP 140/73
--- NOTE | 2025-03-19 05:54 | NUR ---
SHIFT SUMMARY A&OX4. ABLE TO MAKE NEEDS KNOWN. SIGNIFICANT PAIN, N/V AND DIARRHEA DURING THE NIGHT. PT REFUSED A FEW MEDICATIONS LAST NIGHT DUE TO PAIN AND N/V. MULTIPLE CALLS TO HOSPITALIST FOR BETTER PAIN MANAGEMENT. PT WAS FINALLY ABLE TO REST WITH PAIN AND NAUSEA MANAGEMENT PER EMAR. PT TOLERATED ABX INFUSION WELL. DISCUSSED GASTROINTENSTINAL INTERVENTIONS. PT CURRENTLY RESTING IN BED AT LOWEST POSITION WITH RAILS X2 AND CALL LIGHT WITHIN REACH.
[2025-03-19 07:43] VITALS: BP 101/55
--- NOTE | 2025-03-19 08:37 | NUR ---
POWER GLIDE PT RELATED THAT SHE NEEDS ATIVAN/VALIUM PRIOR TO POWER GLIDE PLACEMENT. CALLED DR SINGH. CARE ONGOING.
[2025-03-19] MEDS ORDERED: LORazepam 2 MG/ML 1ML Injection IV ONE (08:45)
[2025-03-19 15:04] VITALS: BP 110/68
--- NOTE | 2025-03-19 18:13 | NUR ---
NOTE CHALLENGING DAY. MID ABD PAIN HAS BEEN MEDCIATED AGGRESSIVELY AND CONSISTENTLY. ATIVAN GIVEN THIS MORING FOR POWER GLIDE PLACEMENT HELPED , COOKER TENDER, WITH REST. WHEN IT WORE OFF HER PAIN BECOME 10/10. FENTAYL NOT HELPFUL. GIVEN MORPHINE, ZOFRAN. PT AGREED TO TAKING HER CARDIZEM THIS EVENING. SHE WAS AFRAID SHE WOULDN'T KEEP IT DOWN THIS MORNING. SHE STATES THAT THIS PAIN DOESN'T FEEL LIKE HER CHEST PAIN FROM 2023 BUT IT DOES GO BETWEEN HER SHOULDER BLADES. IVF INFUSING. PT SELF CATHING. URINE PABLO, CLEAR. PT CONTINUES ON CLEAR LIQUID DIET. SHE REALLY WANTS FOOD BUT IS AFRAID IT WILL HURT. SHE STATED THAT WHEN THIS HAS HAPPENED BEFORE THE ONLY THING THAT GAVE HER ANY RELIEF WAS KNEELING ON ALKL FOURS AND PLACING HER FOREHEAD ON A TABLE. SHE IS CURRENTLY SITTING IN A CHAIR AT BEDSIDE AND FEELING MORE COMFORTABLE. CARE ONGOING.
[2025-03-19 20:10] VITALS: BP 127/86
[2025-03-19] MEDS ORDERED: Lactobacil 2-S.Thermo-Bifido 1 1 Cap PO SCH (21:00)
[2025-03-20 03:50] VITALS: BP 112/58
[2025-03-20 07:42] VITALS: BP 125/83
[2025-03-20 08:20] LABS: BASOPHILS ABSOLUTE AUTO 0.03 K/mm3 (0.00-0.23); BASOPHILS PERCENT AUTO 0 % (0-2); EOSINOPHILS ABSOLUTE AUTO 0.54 K/mm3 (0.00-0.68); EOSINOPHILS PERCENT AUTO 7 % (0-6); Hematocrit 38.8 % (33.0-51.0); Hemoglobin 12.8 g/dL (11.5-16.0); IMMATURE GRAN ABSOLUTE AUTO 0.02 K/mm3 (0.00-0.10); IMMATURE GRAN PERCENT AUTO 0 % (0-1); LYMPHOCYTES ABSOLUTE AUTO 2.37 K/mm3 (0.84-5.20); LYMPHOCYTES PERCENT AUTO 30 % (21-46); MONOCYTES ABSOLUTE AUTO 0.48 K/mm3 (0.16-1.47); MONOCYTES PERCENT AUTO 6 % (4-13); Mean Corpuscular HGB Conc 33.0 g/dL (31.5-36.5); Mean Corpuscular Volume 81 fL (80-100); NEUTROPHILS ABSOLUTE AUTO 4.49 K/mm3 (1.96-9.15); NEUTROPHILS PERCENT AUTO 57 % (41-73); NRBC ABSOLUTE 0.00 K/mm3 (0.00-0.02); NRBC Auto 0.0 /100 WBC (0.0-0.2); Platelet Count 218 K/mm3 (150-400); RDW Coefficient Variation 14.3 % (11.7-14.2); RDW Standard Deviation 41.7 fL (35.1-46.3)
[2025-03-20 09:01] LABS: Alanine Aminotransfer (ALT/SGP 95.0 U/L (12-78); Albumin, Blood 3.2 g/dL (3.4-5.0); Albumin/Globulin Ratio 0.9 (0.8-1.8); Anion Gap 9.0 mmol/L (3-11); Aspartate Aminotrans (AST/SGOT 86.0 U/L (12-37); Bilirubin, Total 0.4 mg/dL (0.1-1.0); Blood Urea Nitrogen 5.0 mg/dL (8-24); CO2, Blood 25.0 mmol/L (21-32); Calcium, Blood 8.2 mg/dL (8.5-10.1); Chloride, Blood 108.0 mmol/L (98-108); Creatinine, Blood 0.58 mg/dL (0.40-1.00); Globulin, Blood 3.4 g/dL (2.2-4.0); Glucose, Blood 78.0 mg/dL (70-99); Magnesium, Blood 2.3 mg/dL (1.6-2.4); Potassium, Blood 4.1 mmol/L (3.5-5.5); Sodium, Blood 138.0 mmol/L (136-145); Total Protein, Blood 6.6 g/dL (6.4-8.2)
[2025-03-20] MEDS ORDERED: NS 1,000 ML IV SCH (10:30)
[2025-03-20 15:49] VITALS: BP 109/62
--- NOTE | 2025-03-20 18:31 | NUR ---
SHIFT SUMMARY PT A&OX4, PLEASANT AND COOPERATIVE WITH CARE. PT PAIN MANAGED TODAY PER EMAR. PT AMBULATED THE HALLS WITH A CANE TODAY. PT WAS TAKEN FOR A ABDOMINAL CT. EPISODES OF DIARRHEA AND NAUSEA T/O SHIFT. CALL LIGHT WITHIN REACH, PT CALLS APPROPRIATELY.
[2025-03-20 18:37] LABS: CALPROTECTIN,FECAL 52 ug/g (<=49)
[2025-03-20 19:57] VITALS: BP 119/66
--- NOTE | 2025-03-21 04:36 | NUR ---
RADIO TALK SHOW HOST SUMMARY PT A&OX4, VSS. PT HAS BEEN ASLEEP MOST OF THE NIGHT. CHEST RISE/RESPIRATIONS NOTED. PT CONTINUES TO HAVE 7/10 EPIGASTRIC PAIN. ALTHOUGH, PT DOES STATE TOLERABLE AND ABLE TO SLEEP. PAIN MEDS OFFERED, BUT PT REFUSED FOR THE TIME BEING. PT STATES SHE CONTINUES TO HAVE DIARRHEA TODAY. NONE THIS SHIFT, BUT DID OCCUR DURING AM SHIFT PER AM RN. BED RAILS UP X 2, BED IN LOWEST POSITION, BED WHEELS LOCKED, PERSONAL BELONGINGS AND CALL LIGHT WITHIN REACH FOR SAFETY.
[2025-03-21 04:58] VITALS: BP 119/70
[2025-03-21 07:44] VITALS: BP 122/88
[2025-03-21 09:03] LABS: BASOPHILS ABSOLUTE AUTO 0.04 K/mm3 (0.00-0.23); BASOPHILS PERCENT AUTO 1 % (0-2); EOSINOPHILS ABSOLUTE AUTO 0.57 K/mm3 (0.00-0.68); EOSINOPHILS PERCENT AUTO 7 % (0-6); Hematocrit 39.9 % (33.0-51.0); Hemoglobin 13.0 g/dL (11.5-16.0); IMMATURE GRAN ABSOLUTE AUTO 0.02 K/mm3 (0.00-0.10); IMMATURE GRAN PERCENT AUTO 0 % (0-1); LYMPHOCYTES ABSOLUTE AUTO 2.19 K/mm3 (0.84-5.20); LYMPHOCYTES PERCENT AUTO 25 % (21-46); MONOCYTES ABSOLUTE AUTO 0.57 K/mm3 (0.16-1.47); MONOCYTES PERCENT AUTO 7 % (4-13); Mean Corpuscular HGB Conc 32.6 g/dL (31.5-36.5); Mean Corpuscular Volume 81 fL (80-100); NEUTROPHILS ABSOLUTE AUTO 5.35 K/mm3 (1.96-9.15); NEUTROPHILS PERCENT AUTO 61 % (41-73); NRBC ABSOLUTE 0.00 K/mm3 (0.00-0.02); NRBC Auto 0.0 /100 WBC (0.0-0.2); Platelet Count 223 K/mm3 (150-400); RDW Coefficient Variation 14.5 % (11.7-14.2); RDW Standard Deviation 42.2 fL (35.1-46.3)
[2025-03-21 10:04] LABS: Alanine Aminotransfer (ALT/SGP 72.0 U/L (12-78); Albumin, Blood 3.3 g/dL (3.4-5.0); Albumin/Globulin Ratio 0.9 (0.8-1.8); Aspartate Aminotrans (AST/SGOT 33.0 U/L (12-37); Bilirubin, Total 0.3 mg/dL (0.1-1.0); Blood Urea Nitrogen 5.0 mg/dL (8-24); CO2, Blood 26.0 mmol/L (21-32); Calcium, Blood 8.3 mg/dL (8.5-10.1); Creatinine, Blood 0.56 mg/dL (0.40-1.00); Globulin, Blood 3.8 g/dL (2.2-4.0); Glucose, Blood 86.0 mg/dL (70-99); Total Protein, Blood 7.1 g/dL (6.4-8.2)
[2025-03-21 10:57] LABS: Anion Gap 8.0 mmol/L (3-11); Chloride, Blood 106.0 mmol/L (98-108); Potassium, Blood 4.1 mmol/L (3.5-5.5); Sodium, Blood 136.0 mmol/L (136-145)
[2025-03-21] MEDS ORDERED: Ondansetron 4 MG SoluTab MM PRN (12:30)
[2025-03-21 14:59] VITALS: BP 98/79
[2025-03-21] MEDS ORDERED: NS 1,000 ML IV ONE (15:10)
[2025-03-21 16:51] VITALS: BP 114/89
--- NOTE | 2025-03-21 17:00 | NUR ---
SHIFT SUMMARY PATIENT A/OX4, ABLE TO MAKE NEEDS KNOWN. PLEASANT AND COOPERATIVE WITH CARE. INDEPENDENT IN THE ROOM WITH HER CANE. PATIENT COMPLAINING OF ABDOMINAL PAIN WHICH RADIATES TO HER BACK THROUGHOUT THE SHIFT. IV MORPHINE ADMINISTERED PER MAR, LATER IN THE AFTERNOON PAIN MEDICATIONS SWITCHED TO PO. PATIENT TOLERATING OXYCODONE WELL. PATIENT WITH 7 LOOSE STOOLS THIS SHIFT, MD NOTIFIED AND IMODIUM ORDERED. PATIENT ALSO WITH SBP 90s, AND 1 L BOLUS ADMINISTERED. PATIENT CONTINUES TO FEEL "DIZZY" INTERMITTENTLY. ATTEMPTED REGULAR TEXTURE DIETFOR LUNCH, PATIENT DID NOT TOLERATE WELL, DOWNGRADED TO FULL LIQUID FOR DINNER. PATIENT ABLE TO SHOWER THIS SHIFT. NO OTHER CONCERNS AT THIS TIME, WILL CONTINUE TO MONITOR.
[2025-03-21 19:33] VITALS: BP 110/66
[2025-03-22] MEDS ORDERED: Morphine Sulfate 4 MG/1 ML Injection IV PRN (02:55)
--- NOTE | 2025-03-22 05:04 | NUR ---
CAR CLEANER SUMMARY PT A&OX4, VSS. HAS BEEN ASLEEP FOR MOST OF THE NIGHT. CHEST RISE/RESPIRATIONS NOTED. PT CONTINUES TO HAVE EPIGASTRIC PAIN. PT STATES A / AND THAT PO OXYCODONE IS NOT HELPING HER PAIN. PT REPORTING IMPROVEMENT IN DIARRHEA W/ IMODIUM. NO IMMODIUM GIVEN THIS SHIFT. ADDITIONAL 1X DOSE OF OXYCODONE GIVEN THIS SHIFT W/ VERY MILD EFFECT. DITROPAN HELD PT STATE SHE COULD NOT KEEP IT DOWN. BED RAILS UP X 2, BED IN LOWEST POSITION, BED WHEELS LOCKED, PERSONAL BELONGINGS AND CALL LIGHT WITHIN REACH FOR SAFETY.
[2025-03-22 05:10] VITALS: BP 103/91
[2025-03-22 08:04] VITALS: BP 124/87
[2025-03-22] MEDS ORDERED: Mag Hydrox/Al Hydrox/Simeth 18 ML,Lidocaine 2% Viscous Soln 9 ML,Atropine/Scopalam/Hyos... PO ONE (09:00)
--- NOTE | 2025-03-22 09:00 | NUR ---
pt sitting on side of bed this am, states her stomach hurts, states is worse than yesterday, a/ox4, pleasant and cooperative with care, follows commands well, lungs are clear t/o, resp even and unlabored, on r/a, no cough noted, hrr, no edema noted, ppp+2, cap refill<3 sec, vs stable, afebrile, power glide to codey site is clear and patent, bt4, abd flat soft nontender, self caths to void, skin c/w/d, maew, ari, call light in reach.
[2025-03-22 13:28] LABS: BASOPHILS ABSOLUTE AUTO 0.04 K/mm3 (0.00-0.23); BASOPHILS PERCENT AUTO 1 % (0-2); EOSINOPHILS ABSOLUTE AUTO 0.47 K/mm3 (0.00-0.68); EOSINOPHILS PERCENT AUTO 6 % (0-6); Hematocrit 40.3 % (33.0-51.0); Hemoglobin 13.0 g/dL (11.5-16.0); IMMATURE GRAN ABSOLUTE AUTO 0.04 K/mm3 (0.00-0.10); IMMATURE GRAN PERCENT AUTO 1 % (0-1); LYMPHOCYTES ABSOLUTE AUTO 2.48 K/mm3 (0.84-5.20); LYMPHOCYTES PERCENT AUTO 30 % (21-46); MONOCYTES ABSOLUTE AUTO 0.50 K/mm3 (0.16-1.47); MONOCYTES PERCENT AUTO 6 % (4-13); Mean Corpuscular HGB Conc 32.3 g/dL (31.5-36.5); Mean Corpuscular Volume 83 fL (80-100); NEUTROPHILS ABSOLUTE AUTO 4.69 K/mm3 (1.96-9.15); NEUTROPHILS PERCENT AUTO 57 % (41-73); NRBC ABSOLUTE 0.00 K/mm3 (0.00-0.02); NRBC Auto 0.0 /100 WBC (0.0-0.2); Platelet Count 207 K/mm3 (150-400); RDW Coefficient Variation 14.4 % (11.7-14.2); RDW Standard Deviation 42.6 fL (35.1-46.3)
[2025-03-22 13:56] LABS: Alanine Aminotransfer (ALT/SGP 53.0 U/L (12-78); Albumin, Blood 3.0 g/dL (3.4-5.0); Albumin/Globulin Ratio 0.8 (0.8-1.8); Anion Gap 8.0 mmol/L (3-11); Aspartate Aminotrans (AST/SGOT 32.0 U/L (12-37); Bilirubin, Total 0.5 mg/dL (0.1-1.0); Blood Urea Nitrogen 7.0 mg/dL (8-24); CO2, Blood 23.0 mmol/L (21-32); Calcium, Blood 8.1 mg/dL (8.5-10.1); Chloride, Blood 109.0 mmol/L (98-108); Creatinine, Blood 0.54 mg/dL (0.40-1.00); Globulin, Blood 3.6 g/dL (2.2-4.0); Glucose, Blood 105.0 mg/dL (70-99); Magnesium, Blood 2.1 mg/dL (1.6-2.4); Potassium, Blood 3.9 mmol/L (3.5-5.5); Sodium, Blood 136.0 mmol/L (136-145); Total Protein, Blood 6.6 g/dL (6.4-8.2)
[2025-03-22 15:56] VITALS: BP 117/72
--- NOTE | 2025-03-22 17:01 | NUR ---
ASSUMED CARE OF PT AT APPROX 1300. PT REPORTS PAIN IS BETTER CONTROLLED TODAY AND HAS NOT ASKED FOR PRN MEDICATIONS SINCE 1300. PT SELF CATHS, 14 FR, SUPPLIES PROVIDED. CALLS APPROPRIATELY, DENIES CHEST PAIN AND PRESSURE, DENIES SOB. UP AD TERESA WITH CANE
[2025-03-22 19:23] VITALS: BP 120/107
[2025-03-23 04:34] VITALS: BP 108/92
[2025-03-23 04:42] LABS: BASOPHILS ABSOLUTE AUTO 0.04 K/mm3 (0.00-0.23); BASOPHILS PERCENT AUTO 1 % (0-2); EOSINOPHILS ABSOLUTE AUTO 0.52 K/mm3 (0.00-0.68); EOSINOPHILS PERCENT AUTO 8 % (0-6); Hematocrit 42.6 % (33.0-51.0); Hemoglobin 14.0 g/dL (11.5-16.0); IMMATURE GRAN ABSOLUTE AUTO 0.02 K/mm3 (0.00-0.10); IMMATURE GRAN PERCENT AUTO 0 % (0-1); LYMPHOCYTES ABSOLUTE AUTO 2.26 K/mm3 (0.84-5.20); LYMPHOCYTES PERCENT AUTO 35 % (21-46); MONOCYTES ABSOLUTE AUTO 0.42 K/mm3 (0.16-1.47); MONOCYTES PERCENT AUTO 6 % (4-13); Mean Corpuscular HGB Conc 32.9 g/dL (31.5-36.5); Mean Corpuscular Volume 81 fL (80-100); NEUTROPHILS ABSOLUTE AUTO 3.30 K/mm3 (1.96-9.15); NEUTROPHILS PERCENT AUTO 50 % (41-73); NRBC ABSOLUTE 0.00 K/mm3 (0.00-0.02); NRBC Auto 0.0 /100 WBC (0.0-0.2); Platelet Count 217 K/mm3 (150-400); RDW Coefficient Variation 14.3 % (11.7-14.2); RDW Standard Deviation 41.5 fL (35.1-46.3)
[2025-03-23 05:14] LABS: Alanine Aminotransfer (ALT/SGP 51.0 U/L (12-78); Albumin, Blood 3.4 g/dL (3.4-5.0); Albumin/Globulin Ratio 0.9 (0.8-1.8); Anion Gap 7.0 mmol/L (3-11); Aspartate Aminotrans (AST/SGOT 25.0 U/L (12-37); Bilirubin, Total 0.3 mg/dL (0.1-1.0); Blood Urea Nitrogen 8.0 mg/dL (8-24); CO2, Blood 25.0 mmol/L (21-32); Calcium, Blood 8.6 mg/dL (8.5-10.1); Chloride, Blood 108.0 mmol/L (98-108); Creatinine, Blood 0.58 mg/dL (0.40-1.00); Globulin, Blood 3.8 g/dL (2.2-4.0); Glucose, Blood 91.0 mg/dL (70-99); Potassium, Blood 3.9 mmol/L (3.5-5.5); Sodium, Blood 136.0 mmol/L (136-145); Total Protein, Blood 7.2 g/dL (6.4-8.2)
--- NOTE | 2025-03-23 05:53 | NUR ---
SHIFT SUMMARY NO ACUTE CHANGES THIS SHIFT, MEDICATED PER MAR FOR C/O ABD PAIN, STATES THE MORPHINE & OXYCODONE ARE NOT REALLY HELPFUL; HAS BEEN TOLERATING FLUIDS THIS SHIFT WELL A FEW SALTINES, REQ DIET TO BE ADVANCED AND STATES THAT HER PAIN DOES NOT SEEM TO COINCIDE WITH PO INTAKE. DENIES N/V THIS SHIFT, DESCRIBES PAIN "COMING ON IN WAVES", BEDRESTING SIPPING TEA AT THIS TIME, ABLE TO MAKE NEEDS KNOWN.
[2025-03-23 07:35] VITALS: BP 127/87
[2025-03-23] MEDS ORDERED: HYDROmorphone HCl/Pf 1MG SYR IV PRN (08:15)
--- NOTE | 2025-03-23 08:16 | NUR ---
pt pacing in her room, states her pain is not being managed with narcodicts, is not better than yesterday, did speak with Dr. Crain about some toradol, he said was contraindicated with gastritis, and will make some changes in pain meds, she is a/ox4, pleasant and cooperative with care, lungs are clear t/o, resp even and unlabored, no cough noted, on r/a, hrr, feet are puffy, but may be habitus, power glide to codey site is clear and patent, btx4, abd round soft nontender, selfs caths for voids, skin c/w/d, mawe, ambulates with a cane, ari, call light in reach.
[2025-03-23] MEDS ORDERED: Multivitamins-Minerals Liquid 15 ML Oral Syringe PO SCH (09:00)
[2025-03-23] MEDS ORDERED: Cholecalciferol 1000 Unit Tablet (=25MCG) PO SCH (09:00)
--- NOTE | 2025-03-23 09:40 | NUR ---
Pt going down for xray via wheelchair, gave 1mg dilaudid for pain, states was more effective than morphine, states she can breath now.
[2025-03-23 15:58] VITALS: BP 107/73
--- NOTE | 2025-03-23 16:03 | NUR ---
pt is laying in bed in tears, states the pain is 10/10, reports she vomited a moderate amount of blood, that was dark in color, notified Dr. Zuniga.
[2025-03-23] MEDS ORDERED: Metoclopramide HCl 5MG / ML 2ML Vial IV PRN (16:20)
[2025-03-23] MEDS ORDERED: Polyethylene Glycol 3350 17 gm PO PRN (16:25)
[2025-03-23] MEDS ORDERED: Magnesium Hydroxide Conc 10 ML UDC PO PRN (16:25)
[2025-03-23] MEDS ORDERED: Docusate Sodium/Senna 1 Tab PO PRN (16:25)
--- NOTE | 2025-03-23 18:44 | NUR ---
pt was given bowel care, based on xray that may be causing some of the pain, up to toilet for a long period of time attempting to go, pain seems to be better, no further changes this shift, call light in reach.
[2025-03-23 20:03] VITALS: BP 105/70
[2025-03-24 03:51] VITALS: BP 112/81
--- NOTE | 2025-03-24 05:22 | NUR ---
SHIFT SUMMARY MEDICATED FOR PAIN X2 THIS SHIFT, 1MG DILAUDID AT HS (2014), FOUND PATIENT ROCKING AT EDGE OF BED TEARFUL AT 0345 REPORTING ABD PAIN 10/10, 2MG DILAUDID ADMIN- AT REASSESSMENT PT REPORTED 2/10 PAIN, PT REPORTS "MANY" LOOSE BM'S T/O THE NIGHT, APPEARS TO BE RESTING COMFORTABLY AT THIS TIME, CALL LIGHT IN REACH, WILL CONT TO MONITOR.
[2025-03-24 05:34] LABS: BASOPHILS ABSOLUTE AUTO 0.05 K/mm3 (0.00-0.23); BASOPHILS PERCENT AUTO 1 % (0-2); EOSINOPHILS ABSOLUTE AUTO 0.97 K/mm3 (0.00-0.68); EOSINOPHILS PERCENT AUTO 10 % (0-6); Hematocrit 39.7 % (33.0-51.0); Hemoglobin 13.1 g/dL (11.5-16.0); IMMATURE GRAN ABSOLUTE AUTO 0.03 K/mm3 (0.00-0.10); IMMATURE GRAN PERCENT AUTO 0 % (0-1); LYMPHOCYTES ABSOLUTE AUTO 1.83 K/mm3 (0.84-5.20); LYMPHOCYTES PERCENT AUTO 20 % (21-46); MONOCYTES ABSOLUTE AUTO 0.47 K/mm3 (0.16-1.47); MONOCYTES PERCENT AUTO 5 % (4-13); Mean Corpuscular HGB Conc 33.0 g/dL (31.5-36.5); Mean Corpuscular Volume 81 fL (80-100); NEUTROPHILS ABSOLUTE AUTO 5.95 K/mm3 (1.96-9.15); NEUTROPHILS PERCENT AUTO 64 % (41-73); NRBC ABSOLUTE 0.00 K/mm3 (0.00-0.02); NRBC Auto 0.0 /100 WBC (0.0-0.2); Platelet Count 222 K/mm3 (150-400); RDW Coefficient Variation 14.4 % (11.7-14.2); RDW Standard Deviation 41.8 fL (35.1-46.3)
[2025-03-24 06:05] LABS: Alanine Aminotransfer (ALT/SGP 39.0 U/L (12-78); Albumin, Blood 3.2 g/dL (3.4-5.0); Albumin/Globulin Ratio 1.0 (0.8-1.8); Anion Gap 8.0 mmol/L (3-11); Aspartate Aminotrans (AST/SGOT 19.0 U/L (12-37); Bilirubin, Total 0.3 mg/dL (0.1-1.0); Blood Urea Nitrogen 10.0 mg/dL (8-24); CO2, Blood 26.0 mmol/L (21-32); Calcium, Blood 8.7 mg/dL (8.5-10.1); Chloride, Blood 108.0 mmol/L (98-108); Creatinine, Blood 0.58 mg/dL (0.40-1.00); Globulin, Blood 3.3 g/dL (2.2-4.0); Glucose, Blood 98.0 mg/dL (70-99); Potassium, Blood 3.9 mmol/L (3.5-5.5); Sodium, Blood 138.0 mmol/L (136-145); Total Protein, Blood 6.5 g/dL (6.4-8.2)
[2025-03-24 07:23] VITALS: BP 108/67
--- NOTE | 2025-03-24 09:43 | NUR ---
pt sitting bed, relaxed, states she's ok right now, slept last night, lungs clear t/o, on r/a, resp even and unlabored, no cough noted, hrr, feet are puffy, cap refill <3 sec, vs stable, afebrile, power glide to codey site is clear and patent, but a bit positional, btx4, pt reports diarrhea after bowel care last night, self caths for voids, skin c/w/d, ari stroud, call light in reach.
--- NOTE | 2025-03-24 18:16 | NUR ---
pt required three doses of pain meds today, her power glide dressing was changed and kink in line removed, flushes and draws blood now, pt feels like she isn't getting better as pain is not improving, offered encouragement, no further changes this shift, call light in reach.
[2025-03-24 19:29] VITALS: BP 128/94
[2025-03-24] MEDS ORDERED: Prochlorperazine Edisylate 10 mg Vial IV ONE (20:50)
[2025-03-25 03:03] VITALS: BP 119/82
--- NOTE | 2025-03-25 04:22 | NUR ---
SHIFT SUMMARY PT HAD EMEMISIS X1 THIS SHIFT, REPORTED BRIGHT RED BLOOD IN STOOL AND BRIGHT RED VAGINAL BLEEDING ALSO; REPORTS SHE HAS IUD IN PLACE AND DOES NOT MENSTURATE. MEDICATED PER MAR FOR PAIN, BEDRESTING AT THIS TIME, CALL LIGHT IN REACH, ABLE TO MAKE NEDS KNOWN.
[2025-03-25 06:39] LABS: BASOPHILS ABSOLUTE AUTO 0.04 K/mm3 (0.00-0.23); BASOPHILS PERCENT AUTO 1 % (0-2); EOSINOPHILS ABSOLUTE AUTO 0.85 K/mm3 (0.00-0.68); EOSINOPHILS PERCENT AUTO 10 % (0-6); Hematocrit 39.2 % (33.0-51.0); Hemoglobin 12.8 g/dL (11.5-16.0); IMMATURE GRAN ABSOLUTE AUTO 0.03 K/mm3 (0.00-0.10); IMMATURE GRAN PERCENT AUTO 0 % (0-1); LYMPHOCYTES ABSOLUTE AUTO 2.48 K/mm3 (0.84-5.20); LYMPHOCYTES PERCENT AUTO 29 % (21-46); MONOCYTES ABSOLUTE AUTO 0.57 K/mm3 (0.16-1.47); MONOCYTES PERCENT AUTO 7 % (4-13); Mean Corpuscular HGB Conc 32.7 g/dL (31.5-36.5); Mean Corpuscular Volume 82 fL (80-100); NEUTROPHILS ABSOLUTE AUTO 4.55 K/mm3 (1.96-9.15); NEUTROPHILS PERCENT AUTO 53 % (41-73); NRBC ABSOLUTE 0.00 K/mm3 (0.00-0.02); NRBC Auto 0.0 /100 WBC (0.0-0.2); Platelet Count 210 K/mm3 (150-400); RDW Coefficient Variation 14.4 % (11.7-14.2); RDW Standard Deviation 41.8 fL (35.1-46.3)
[2025-03-25 06:55] LABS: Alanine Aminotransfer (ALT/SGP 35.0 U/L (12-78); Albumin, Blood 3.0 g/dL (3.4-5.0); Albumin/Globulin Ratio 0.9 (0.8-1.8); Anion Gap 6.0 mmol/L (3-11); Aspartate Aminotrans (AST/SGOT 24.0 U/L (12-37); Bilirubin, Total 0.2 mg/dL (0.1-1.0); Blood Urea Nitrogen 11.0 mg/dL (8-24); CO2, Blood 26.0 mmol/L (21-32); Calcium, Blood 8.7 mg/dL (8.5-10.1); Chloride, Blood 109.0 mmol/L (98-108); Creatinine, Blood 0.59 mg/dL (0.40-1.00); Globulin, Blood 3.3 g/dL (2.2-4.0); Glucose, Blood 100.0 mg/dL (70-99); Potassium, Blood 4.1 mmol/L (3.5-5.5); Sodium, Blood 137.0 mmol/L (136-145); Total Protein, Blood 6.3 g/dL (6.4-8.2)
[2025-03-25 07:40] VITALS: BP 102/70
[2025-03-25] MEDS ORDERED: Prochlorperazine Edisylate 10 mg Vial IV PRN (09:10)
[2025-03-25] MEDS ORDERED: Polyethylene Glycol 3350 17 gm PO ONE (15:00)
[2025-03-25 15:32] VITALS: BP 100/57
[2025-03-25] MEDS ORDERED: Peg/Electrolytes 4,000 ML BTL PO ONE (17:00)
[2025-03-25 19:27] VITALS: BP 123/80
--- NOTE | 2025-03-25 20:04 | NUR ---
SHIFT SUMMARY PT A&OX4. PT ADMITTED DUE TO INTRACTABLE EPIGASTRIC ABD PAIN. VSS. PT INDEPENDENT IN ROOM. PT HAS ABD PAIN, PAIN MANAGED PER EMAR. PT REPORTS NAUSEA, NAUSEA MANAGED PER EMAR. PT REPORTS VOMITTING X1. PT REPORTS BLOODY STOOL AND VAGINAL BLEEDING. DR. HADDAD CONSULTED. DR. HADDAD ORDERED PELVIC ULTRASOUND. AWAITING RESULTS FOR ULTRASOUND. DR. PHILLIPS CONSULTED, DR. PHILLIPS WILL DO COLONOSCOPY TOMORROW AFTERNOON. PT UNDERSTANDS WATER AND CHIPS AFTER NINE AND NPO TOMORROW AT NOON. BSC SET UP NEAR BED, PT HAS ATTENDS ON. CLEAR LIQUID DIET FOR NOW. PT REPORTS MANAGING STRAIGHT CATH PER ORDER. PT IN BED, BED IN LOWEST POSITION, CALL LIGHT IN REACH.
--- NOTE | 2025-03-26 04:16 | NUR ---
SHIFT SUMMARY NO ACUTE EVENTS DURING THIS SHIFT. PT IS PLEASANT AND COOPERATIVE WITH CARE. GOLYTELY PART I ADMINISTERED PER 'S ORDER. PT C/O 10/10 ABDOMINAL PAIN. INFILTERED RIGHT FOREARM POWERGLIDE REMOVED, PT REPORTS 10/10 PAIN IN UPPER ARM. ICE PACK OFFERED AND MEDICATED PER EMAR. STOOL IS STILL BROWN, LIQUID @0400. PT TOLERATING GOLYTELY WELL. H2O AND ICE UNTIL NPO TODAY AT NOON PER ORDER. BED AT THE LOWEST POSITION, CALL LIGHT W/I REACH.
[2025-03-26 04:54] VITALS: BP 134/67
[2025-03-26 06:58] LABS: Alanine Aminotransfer (ALT/SGP 37.0 U/L (12-78); Albumin, Blood 2.9 g/dL (3.4-5.0); Albumin/Globulin Ratio 0.9 (0.8-1.8); Anion Gap 9.0 mmol/L (3-11); Aspartate Aminotrans (AST/SGOT 25.0 U/L (12-37); Bilirubin, Total 0.3 mg/dL (0.1-1.0); Blood Urea Nitrogen 7.0 mg/dL (8-24); CO2, Blood 23.0 mmol/L (21-32); Calcium, Blood 8.0 mg/dL (8.5-10.1); Chloride, Blood 109.0 mmol/L (98-108); Creatinine, Blood 0.54 mg/dL (0.40-1.00); Globulin, Blood 3.2 g/dL (2.2-4.0); Glucose, Blood 96.0 mg/dL (70-99); Potassium, Blood 3.9 mmol/L (3.5-5.5); Sodium, Blood 137.0 mmol/L (136-145); Total Protein, Blood 6.1 g/dL (6.4-8.2)
[2025-03-26] MEDS ORDERED: Peg/Electrolytes 4,000 ML BTL PO ONE ×2 (07:00→12:15)
[2025-03-26 07:09] VITALS: BP 102/64
--- NOTE | 2025-03-26 08:28 | NUR ---
NOTE PT ORDER FOR ICE CHIPS AND SIPS OF WATER. BOWEL PREP IN PROCESS, CONSULTED PACKER AND PT ABOUT NEEDED MEDS THIS AM DUE TO PT BEING PRE PROCEDURE. PT "OK WITH MEDS IM TAKING, DONT NEED OXYBUTIN BUT NEED GABAPENTIN."
--- NOTE | 2025-03-26 11:43 | NUR ---
NOTE PT HAVING INTERMITTENT CLEAR STOOLS, NOT COMPLETELY CLEAR. REPORTED TO DR. PHILLIPS. ALAN ORDERING MORE BOWEL PREP. REPORTED "DRINK UNTIL CLEAR, ONCE CLEAR LET ME KNOW THEN SHE WILL BE NPO."
--- NOTE | 2025-03-26 12:47 | NUR ---
NOTE DR. ROCHA, REPORTED YEST, "CONSULT IS WASTE OF TIME DUE TO BLEEDING BEING COMMON ON IUD." DR. LAZO GOT RESULTS FROM PELVIC ULTRASOUND AND CANCELLED CONSULT DUE TO "RESULTS SHOWING CORRECT POSITIONING FOR IUD."
--- NOTE | 2025-03-26 15:52 | NUR ---
NOTE PT NOW HAVING CLEAR STOOL. REPORTED TO DR. JOHNSON. PT HAD A TOTAL OF 1.5 OF BOWEL PREP. PT BEEN NPO FOR [address] JOHNSON REPORTED KEEP PT NPO.
[2025-03-26 16:12] VITALS: BP 104/75
--- NOTE | 2025-03-26 18:30 | NUR ---
SHIFT SUMMARY PT A&OX4. PT ADMITTED DUE TO INTRACTABLE EPIGASTRIC ABD PAIN. VSS, PT INDEPENDENT IN ROOM. PT HAS ABD PAIN. PAIN MANAGED PER EMAR. PT REPORTS NAUSEA, NAUSEA MANAGED PER EMAR. PT REPORTS NO VOMITTING TODAY. PT INDEPENDENT IN ROOM. PT NPO. PT REPORTS MANAGING STRAIGHT CATH PER ORDER. PT HAVING FREQUENT STOOLS. PT HAS ATTENDS IN PLACE. STOOLS ARE LIQUID AND CLEAR. AWAITING COLONOSCOPY. PEGA DEVELOPER CALLED DAY SURG TO CHECK ON TIME, DAY SURG REPORTED COLONOSCOPY STILL SCHEDULED FOR TODAY. PT IN CHAIR, CALLS APPROPRIATE, CALL LIGHT IN REACH.
[2025-03-26 19:34] VITALS: BP 120/88
--- NOTE | 2025-03-26 20:07 | NUR ---
PT ENROUTE TO SCHEDULED COLONOSCOPY @1894
--- NOTE | 2025-03-26 21:36 | NUR ---
NEW T-ORDER RECEIVED FROM SONIA, ON-CALL HOSPITALIST: ATIVAN PO 2MG X1 NOW. ENTERED TO [facility], SEE EMAR.
--- NOTE | 2025-03-26 21:44 | NUR ---
03/26/25 0288 Rickie Sanchez History, Chart, Medications and Allergies reviewed before start of procedure. MONITOR INTACT WITH CONTINUOUS PULSE OXIMETRY, CONTINUOUS END TITAL CO2, 3-LEAD EKG AND INTERMITTENT BLOOD PRESSURE.O2 VIA POM INTACT THROUGHOUT SEDATION/PROCEDURE. IV INFILTRATED WHEN ANESTHESIA STARTED TO PUSH MEDICATIONS. IV DC'D INTACT AND COBAN AND 2X2'S PLACED OVER SITE. ORD.CDA MADE 3 UNSUCESSFUL IV ATTEMPTS IN THE LEFT UPPER ARM. ATTEMPTS FAILED DUE TO VEINS BLOWING. WE WERE UNABLE TO ESTABLISH IV ACCESS IN DAY SURGERY. REPORT GIVEN TO [facility] FLOOR RN AND PT RETURNED BACK TO ROOM.
[2025-03-27] VITALS (8 sets, daily range): BP systolic 111–160; BP diastolic 64–99
--- NOTE | 2025-03-27 03:09 | NUR ---
SHIFT SUMMARY @HS PT WAS TRANSPORTED TO THE OR FOR THE SCHEDULED COLONOSCOPY PER . PER OR NURSE'S PHONECALL, THE IV INFILTRATED, THEREFORE DID NOT PERFORM THE COLONOSCOPY. REQUESTING NEW POWER GLIDE AND WILL SCHEDULE THE PT FOR TODAY FOR COLONOSCOPY. PT HAS SEVERE ANXIETY AND FEAR OF NEEDLES. NEW ORDER OF PO ATIVAN 2MG X1 RECEIVED FROM THE ON-CALL HOSPITALIST NP. MARTINEZ. ADMINISTERED ORDERED PRIOR TO ATTEMPT OF INSERTING POWERGLIDE. CHARGE NURSE PREETHI ATTEMPTED TO INSERT THE POWERGLIDE, WAS NOT SUCCESSFUL. WILL PASS TO DAY SHIFT RN THAT PT DOES NOT HAVE AN IV AT THIS TIME. ROCEPHIN NOT ADMINISTERED AT HS. MEDS WITH H2O AT HS. PLAN IS TO CONSUME 1/2 BOTTLE OF GOLYTELY THIS MORNING (SEE 'S NURSE NOTIFY NOTE). PT C/O 8/10 ABDOMINAL PAIN, MEDICATED PER EMAR. STOOL IS LIQUID, LIGHT BROWN IN COLOR. PT CONTENPLATING TO TO GO FORWARD WITH THE COLONOSCOPY DUE TO DISCOMFORT AND FEAR WITH NEEDLES. CONTINUING PT EDUCATION, PROVIDED EMPHATY AND ACTIVE LISTENING. BED AT THE LOWEST POSITION, CALL LIGHT W/I REACH. PT IS A/O X4, VERY PLEASANT AND COOPERATIVE WITH CARE. PT IS ABLE TO MAKE HER NEEDS KNOWN.
[2025-03-27] MEDS ORDERED: Peg/Electrolytes 4,000 ML BTL PO SCH (10:00)
[2025-03-27 11:08] LABS: VITAMIN E (ALPHA-TOCOPHEROL) 4.6 mg/L (5.5-18.0); VITAMIN E (GAMMA-TOCOPHEROL) 1.7 mg/L (0.0-6.0)
--- NOTE | 2025-03-27 15:25 | NUR ---
W/C inTO Day Surgery. Pre-Op teaching done. Pt verbalizes understanding. History, Chart, Medications and Allergies reviewed before start of procedure.Patient confirms NPO status and agrees with scheduled surgery.
--- NOTE | 2025-03-27 15:49 | NUR ---
03/27/25 [address] ALVAREZ, SEE ANESTHESIA RECORDS.
[2025-03-27 18:19] LABS: BASOPHILS ABSOLUTE AUTO 0.04 K/mm3 (0.00-0.23); BASOPHILS PERCENT AUTO 0 % (0-2); EOSINOPHILS ABSOLUTE AUTO 0.15 K/mm3 (0.00-0.68); EOSINOPHILS PERCENT AUTO 2 % (0-6); Hematocrit 36.4 % (33.0-51.0); Hemoglobin 12.0 g/dL (11.5-16.0); IMMATURE GRAN ABSOLUTE AUTO 0.05 K/mm3 (0.00-0.10); IMMATURE GRAN PERCENT AUTO 1 % (0-1); LYMPHOCYTES ABSOLUTE AUTO 1.99 K/mm3 (0.84-5.20); LYMPHOCYTES PERCENT AUTO 22 % (21-46); MONOCYTES ABSOLUTE AUTO 0.80 K/mm3 (0.16-1.47); MONOCYTES PERCENT AUTO 9 % (4-13); Mean Corpuscular HGB Conc 33.0 g/dL (31.5-36.5); Mean Corpuscular Volume 81 fL (80-100); NEUTROPHILS ABSOLUTE AUTO 6.24 K/mm3 (1.96-9.15); NEUTROPHILS PERCENT AUTO 67 % (41-73); NRBC ABSOLUTE 0.00 K/mm3 (0.00-0.02); NRBC Auto 0.0 /100 WBC (0.0-0.2); Platelet Count 178 K/mm3 (150-400); RDW Coefficient Variation 14.4 % (11.7-14.2); RDW Standard Deviation 42.2 fL (35.1-46.3)
[2025-03-27 19:02] LABS: Anion Gap 11.0 mmol/L (3-11); Blood Urea Nitrogen 5.0 mg/dL (8-24); CO2, Blood 25.0 mmol/L (21-32); Calcium, Blood 8.4 mg/dL (8.5-10.1); Chloride, Blood 105.0 mmol/L (98-108); Creatinine, Blood 0.46 mg/dL (0.40-1.00); Glucose, Blood 86.0 mg/dL (70-99); Potassium, Blood 3.5 mmol/L (3.5-5.5); Sodium, Blood 137.0 mmol/L (136-145)
--- NOTE | 2025-03-27 20:50 | NUR ---
PT LEFT FOR COLONOSCOPY 1514 AND RETURNED AFTER PROCEDURE 1714, A/O X4, SITTING AT THE EDGE OF BED VERBAL AND ALERT. VSS. REQ PAIN MED AND NAUSEA MED FOR ABD PAIN. WILL BEGIN SOLID FOOD, STARTED WITH CHOCHLATE PUDDING. WILL CONT TO MARTA
--- NOTE | 2025-03-27 20:51 | NUR ---
SUMMARY- PT A/O X4, PT IS USUALLY INDEPENDANT WITH CANE AND SELF CATHS. SBA TODAY FOR SAFETY RELATED TO SEDATIVE MEDS WAS A LITTLE UNSTEADY THIS AM. PREPED FOR COLONOSCOPY RUNNING CLEAR YELLOW BEFORE PROCEDURE. POWERGLIDE PLACED TO ANTONI BEFORE PROCEDURE. TOLEREATING CLEAR LIQUIDS UNTIL NPO FOR PROCEDURE THAN STARTED INTRODUSING FULL LIQ, TOLERATING SO FAR. PAIN IN ABD DESCRIBED MID ABD, INTERMITTANT, PRESUERE WITH OCC SHARP, RADIATING INTO BACK. PAIN CONTROLLED WITH IV DILAUDID. NAUSEA CONTROLLED WITH IV COMPAZINE. TAMARA SWELLING,RED AND WARM FROM REPORTED POWERGLIDE THAT WAS IN PLACE FOR A FEW DAYS. VENOUS US PERFORMED SHOWING SUPERFICIAL THROMBUS. ORDER FOR ICE PRN NEEDED FOR COMFORT. USING HEAT ALSO FOR ABD PAIN. VSS, LUNGS CLEAR. REPORTED ALL TO NOC GÉNESIS BURDEN.
[2025-03-28 04:00] VITALS: BP 124/82
[2025-03-28 04:35] LABS: Source, Urine Straight Cath
--- NOTE | 2025-03-28 04:57 | NUR ---
SHIFT SUMMARY PT ALERT ORIENTED X 4 ABLE TO VERBALIZE NEEDS GETS UP AD TERESA IN HER ROOM AND AMBULATES TO THE BATHROOM. C/O ABD PAIN AND RT ARM PAIN FROM THE OLD POWER GLIDE SITE MEDICATED WITH DILAUDID AND OXY ORDERED. NO C/O NAUSEA THIS SHIFT. VSS ON RA SATTING AT 100%. POWERGLIDE INTACT TO LT UPPER ARM SL. SHE HAS SOME SWELLING TO HER RT UPPER ARM WHERE THE OLD POWER GLIDE WAS. URINE WAS SENT TO THE LAB AND BLOOD CULTURE WAS DONE. REMAINS ON ROCEPHIN ORDERED. HER ULTRASOUND SHOWED A SUPERFICIAL VENOUS THROMBOSIS ABOVE AND BELOW HER RT ELBOW. RESTING IN BED AT THIS TIME WITH CALL LIGHT IN PLACE
[2025-03-28 05:09] LABS: Bilirubin, Urine Neg (Neg); Color, Urine Yellow (P-Yellow); Glucose Qualitative, Urine Neg (Neg); Ketones, Urine 3+ (Neg); Leukocyte Esterase, Urine Neg (Neg); Protein, Urine Neg (Neg); Specific Gravity, Urine 1.015 (1.003-1.022); Urobilinogen, Urine NORM (Normal)
[2025-03-28 07:39] VITALS: BP 127/81
[2025-03-28] MEDS ORDERED: Acetaminophen650 M1 PO (13:15)
[2025-03-28] MEDS ORDERED: FAMO20 PO (13:16)
[2025-03-28] MEDS ORDERED: OMEP20ER PO (13:18)
[2025-03-28] MEDS ORDERED: TRAM50 PO (13:19)
[2025-03-28 14:35] LABS: Anion Gap 10.0 mmol/L (3-11); Blood Urea Nitrogen 3.0 mg/dL (8-24); CO2, Blood 22.0 mmol/L (21-32); Calcium, Blood 8.6 mg/dL (8.5-10.1); Chloride, Blood 110.0 mmol/L (98-108); Creatinine, Blood 0.47 mg/dL (0.40-1.00); Glucose, Blood 120.0 mg/dL (70-99); Potassium, Blood 3.7 mmol/L (3.5-5.5); Sodium, Blood 138.0 mmol/L (136-145)
--- NOTE | 2025-03-28 14:38 | NUR ---
PT DISCHARGED AT 1415 AOX4 AND COOPERATIVE OF CARE. PT HAD REPORTED PAIN TO R ARM DUE TO CLOT FROM PREVIOUS POWEREGLIDE. DR LAZO NOTIFIED AND ORDERED PT TO ELEVATE AND APPLY ICE. PT WAS ALSO TREATED FOR PAIN PER EMAR. ALL PAPERWORK REVIEWED AND EDUCATIONAL MATERIAL WAS SENT WITH PT. NO DISTRESS NOTED AND ESCORTED OUT VIA WHEEL CHAIR WITH ALL PERSONAL BELONINGS TO N ENTRANCE.MOTHER TO TRANSPORT HOME.
--- NOTE | 2025-03-28 14:45 | NUR ---
THIS FREIGHT SEPARATOR HAS REVIEWED ASSESSMENTS BY GÉNESIS PETTIT AND AGREES WITH THEM.
== END 2025-03-28 15:20 | disposition home or self-care (01) | DRG 392 ==
LOC: ER 18:10 → MEDS 18:11 → ER 18:11 → MEDS 18:11
PROVIDERS: Family Medicine; Student in an Organized Health Care Education/Training Program; Surgery; ADMIT Student in an Organized Health Care Education/Training Program
PROC: 3E03329 Introduction of Other Anti-infective into Peripheral Vein, Percutaneous Approach (ICD-10-PCS; 2025-03-18)
PROC: 5A09357 Assistance with Respiratory Ventilation, Less than 24 Consecutive Hours, Continuous Positive Airway Pressure (ICD-10-PCS; principal; 2025-03-18 13:45)
PROC: 0DB78ZX Excision of Stomach, Pylorus, Via Natural or Artificial Opening Endoscopic, Diagnostic (ICD-10-PCS; 2025-03-18 13:45)
PROC: 0DJD8ZZ Inspection of Lower Intestinal Tract, Via Natural or Artificial Opening Endoscopic (ICD-10-PCS; 2025-03-27)
DX: K29.70 Gastritis, unspecified, without bleeding (principal); I20.1 Angina pectoris with documented spasm; I82.611 Acute embolism and thrombosis of superficial veins of right upper extremity; K62.5 Hemorrhage of anus and rectum; N39.0 Urinary tract infection, site not specified; Z68.41 Body mass index [BMI] 40.0-44.9, adult; K21.9 Gastro-esophageal reflux disease without esophagitis; Q05.9 Spina bifida, unspecified; G43.909 Migraine, unspecified, not intractable, without status migrainosus; K42.9 Umbilical hernia without obstruction or gangrene; N31.9 Neuromuscular dysfunction of bladder, unspecified; F43.10 Post-traumatic stress disorder, unspecified; F32.9 Major depressive disorder, single episode, unspecified; G47.33 Obstructive sleep apnea (adult) (pediatric); E66.01 Morbid (severe) obesity due to excess calories; G90.A Postural orthostatic tachycardia syndrome [POTS]; J45.909 Unspecified asthma, uncomplicated; E03.9 Hypothyroidism, unspecified; Z85.820 Personal history of malignant melanoma of skin; Z90.49 Acquired absence of other specified parts of digestive tract; Z90.722 Acquired absence of ovaries, bilateral; B96.20 Unspecified Escherichia coli [E. coli] as the cause of diseases classified elsewhere; Z98.51 Tubal ligation status; Z91.040 Latex allergy status; Z91.018 Allergy to other foods; Z79.82 Long term (current) use of aspirin; Z79.899 Other long term (current) drug therapy; Z98.890 Other specified postprocedural states; Z87.19 Personal history of other diseases of the digestive system
CPT/HCPCS: 36415; 71045; 74018; 74177; 76830; 76856; 80048; 80053; 81001; 81003; 82330; 83036; 83605; 83690; 83735; 83993; 84145; 84446; 84703; 85025; 85651; 86140; 87077; 87086; 87186; 87338; 88305; 88341; 88342; 93971; 96372; 96374; 96375; 96376; 99285-25; A9270; C1751; G0378; J0696; J0780; J1171; J1650; J2060; J2270; J2405; J2704; J2765; J3010; J7030; J7050; J7120; Q9967

== ENCOUNTER → 2025-04-05 | Outpatient (CLI) | payer OTHER ==
[~2025-04-05] MED LIST changes: +ALBU8HFA2 INH; +ALBUTEROL INH; +ASPIR 8181 M1 PO; +CARTIA XT120 M1 PO; +FAMO20 PO; +ISOSORBIDE MONO30 MG PO; +Imitrex100 MG PO; +LYRICA150 M1 PO; +ONDA4; +ONDA4 PO; +[UNRECOGNIZED DRUG - OTHER] INH
== END ==
LOC: LAB SHORT 15:13 → LAB 15:13
DX: R30.0 Dysuria (principal)
CPT/HCPCS: 87086

== ENCOUNTER 2025-04-08 16:26 | Inpatient (IN) | payer OTHER ==
[~2025-04-08] VITALS: Ht 162.6 cm; Wt 113.4 kg
[~2025-04-08 16:26] MED LIST changes: -ONDA4 PO
[2025-04-08] MEDS ORDERED: NS 1,000 ML IV SCH ×2 (17:20→21:20)
[2025-04-08] MEDS ORDERED: Metoclopramide HCl 5MG / ML 2ML Vial IV ONE (17:20)
[2025-04-08] MEDS ORDERED: HYDROmorphone HCl/Pf 1MG SYR IV ONE ×2 (17:20→22:50)
[2025-04-08] MEDS ORDERED: Metoclopramide HCl 5MG / ML 2ML Vial IM ONE (18:25)
[2025-04-08] MEDS ORDERED: HYDROmorphone HCl/Pf 1MG SYR IM ONE (18:25)
[2025-04-08 21:18] LABS: BASOPHILS ABSOLUTE AUTO 0.05 K/mm3 (0.00-0.23); BASOPHILS PERCENT AUTO 0 % (0-2); EOSINOPHILS ABSOLUTE AUTO 0.14 K/mm3 (0.00-0.68); EOSINOPHILS PERCENT AUTO 1 % (0-6); Hematocrit 44.9 % (33.0-51.0); Hemoglobin 14.8 g/dL (11.5-16.0); IMMATURE GRAN ABSOLUTE AUTO 0.04 K/mm3 (0.00-0.10); IMMATURE GRAN PERCENT AUTO 0 % (0-1); LYMPHOCYTES ABSOLUTE AUTO 2.94 K/mm3 (0.84-5.20); LYMPHOCYTES PERCENT AUTO 24 % (21-46); MONOCYTES ABSOLUTE AUTO 0.76 K/mm3 (0.16-1.47); MONOCYTES PERCENT AUTO 6 % (4-13); Mean Corpuscular HGB Conc 33.0 g/dL (31.5-36.5); Mean Corpuscular Volume 79 fL (80-100); NEUTROPHILS ABSOLUTE AUTO 8.50 K/mm3 (1.96-9.15); NEUTROPHILS PERCENT AUTO 68 % (41-73); NRBC ABSOLUTE 0.00 K/mm3 (0.00-0.02); NRBC Auto 0.0 /100 WBC (0.0-0.2); Platelet Count 274 K/mm3 (150-400); RDW Coefficient Variation 14.4 % (11.7-14.2); RDW Standard Deviation 41.0 fL (35.1-46.3)
[2025-04-08 21:35] LABS: Alanine Aminotransfer (ALT/SGP 32.0 U/L (12-78); Albumin, Blood 3.8 g/dL (3.4-5.0); Albumin/Globulin Ratio 0.9 (0.8-1.8); Anion Gap 12.0 mmol/L (3-11); Aspartate Aminotrans (AST/SGOT 22.0 U/L (12-37); Bilirubin, Total 0.9 mg/dL (0.1-1.0); Blood Urea Nitrogen 12.0 mg/dL (8-24); CO2, Blood 19.0 mmol/L (21-32); Calcium, Blood 9.3 mg/dL (8.5-10.1); Chloride, Blood 105.0 mmol/L (98-108); Creatinine, Blood 0.51 mg/dL (0.40-1.00); Globulin, Blood 4.4 g/dL (2.2-4.0); Glucose, Blood 73.0 mg/dL (70-99); Potassium, Blood 4.4 mmol/L (3.5-5.5); Sodium, Blood 132.0 mmol/L (136-145); Total Protein, Blood 8.2 g/dL (6.4-8.2)
[2025-04-09 00:03] LABS: Source, Urine Clean Catch
[2025-04-09 00:09] LABS: Bilirubin, Urine Neg (Neg); Glucose Qualitative, Urine Neg (Neg); Ketones, Urine 4+ (Neg); Leukocyte Esterase, Urine 1+ (Neg); Protein, Urine 1+ (Neg); Specific Gravity, Urine 1.025 (1.003-1.022); Urobilinogen, Urine NORM (Normal)
[2025-04-09 00:15] LABS: Color, Urine Yellow (P-Yellow); Red Blood Cells, Urine Not Seen /hpf (0-2)
[2025-04-09] MEDS ORDERED: Pantoprazole Sodium 40 MG Injection IV SCH (00:21)
[2025-04-09 00:47] LABS: U Amphetamine Screen Not Detected; U Barbiturate Screen Not Detected; U Benzodiazapine Screen Not Detected; U Buprenorphine Screen Not Detected; U Cannabinoids Screen Not Detected; U Cocaine Screen Not Detected; U Methadone Screen Not Detected; U Methamphetamine Screen Not Detected; U Opiates Screen DETECTED; U Oxycodone Screen Not Detected; U Phencyclidine Screen Not Detected
[2025-04-09] MEDS ORDERED: FLU VACC TS2025-26(6MOS UP)/PF 45 MCG/0.5 ML SYRINGE IM SCH (01:00)
[2025-04-09] MEDS ORDERED: Metoclopramide HCl 5MG / ML 2ML Vial IV PRN (01:00)
[2025-04-09] MEDS ORDERED: Magnesium Hydroxide Conc 10 ML UDC PO PRN (01:00)
[2025-04-09] MEDS ORDERED: D5W-NS 1,000 ML IV SCH (01:05)
[2025-04-09] MEDS ORDERED: HYDROmorphone HCl/Pf 1MG SYR IV PRN (01:05)
[2025-04-09 01:14] LABS: C-REACTIVE PROTEIN, EXT RANGE 2.36 mg/dL (0.000-0.300)
[2025-04-09] MEDS ORDERED: Mag Hydrox/Al Hydrox/Simeth 18 ML,Lidocaine 2% Viscous Soln 9 ML,Atropine/Scopalam/Hyos... PO ONE (01:25)
[2025-04-09] MEDS ORDERED: CefTRIAXone Sodium 1,000 MG in NS 100 ML IV SCH (02:15)
[2025-04-09 02:17] VITALS: BP 121/82
[2025-04-09] MEDS ORDERED: NS 250 ML IV PRN (02:40)
[2025-04-09] MEDS ORDERED: Ondansetron HCl 2 MG / ML 2ML Vial IV PRN (02:48)
[2025-04-09 04:36] LABS: BASOPHILS ABSOLUTE AUTO 0.04 K/mm3 (0.00-0.23); BASOPHILS PERCENT AUTO 0 % (0-2); EOSINOPHILS ABSOLUTE AUTO 0.20 K/mm3 (0.00-0.68); EOSINOPHILS PERCENT AUTO 2 % (0-6); Hematocrit 39.6 % (33.0-51.0); Hemoglobin 13.1 g/dL (11.5-16.0); IMMATURE GRAN ABSOLUTE AUTO 0.03 K/mm3 (0.00-0.10); IMMATURE GRAN PERCENT AUTO 0 % (0-1); LYMPHOCYTES ABSOLUTE AUTO 3.26 K/mm3 (0.84-5.20); LYMPHOCYTES PERCENT AUTO 29 % (21-46); MONOCYTES ABSOLUTE AUTO 0.65 K/mm3 (0.16-1.47); MONOCYTES PERCENT AUTO 6 % (4-13); Mean Corpuscular HGB Conc 33.1 g/dL (31.5-36.5); Mean Corpuscular Volume 80 fL (80-100); NEUTROPHILS ABSOLUTE AUTO 7.11 K/mm3 (1.96-9.15); NEUTROPHILS PERCENT AUTO 63 % (41-73); NRBC ABSOLUTE 0.00 K/mm3 (0.00-0.02); NRBC Auto 0.0 /100 WBC (0.0-0.2); Platelet Count 277 K/mm3 (150-400); RDW Coefficient Variation 14.4 % (11.7-14.2); RDW Standard Deviation 41.7 fL (35.1-46.3)
[2025-04-09 05:09] LABS: Alanine Aminotransfer (ALT/SGP 27.0 U/L (12-78); Albumin, Blood 3.4 g/dL (3.4-5.0); Albumin/Globulin Ratio 1.0 (0.8-1.8); Anion Gap 11.0 mmol/L (3-11); Aspartate Aminotrans (AST/SGOT 14.0 U/L (12-37); Bilirubin, Total 0.8 mg/dL (0.1-1.0); Blood Urea Nitrogen 14.0 mg/dL (8-24); CO2, Blood 22.0 mmol/L (21-32); Calcium, Blood 8.7 mg/dL (8.5-10.1); Chloride, Blood 107.0 mmol/L (98-108); Creatinine, Blood 0.5 mg/dL (0.40-1.00); Globulin, Blood 3.3 g/dL (2.2-4.0); Glucose, Blood 118.0 mg/dL (70-99); Potassium, Blood 3.3 mmol/L (3.5-5.5); Sodium, Blood 137.0 mmol/L (136-145); Total Protein, Blood 6.7 g/dL (6.4-8.2)
[2025-04-09 07:24] VITALS: BP 112/74
[2025-04-09] MEDS ORDERED: Lactobacil 2-S.Thermo-Bifido 1 1 Cap PO SCH (09:00)
[2025-04-09] MEDS ORDERED: Enoxaparin 40 MG/0.4 ML SYR SC SCH (09:00)
[2025-04-09] MEDS ORDERED: Mag Hydrox/Al Hydrox/Simeth 72 ML,Lidocaine 2% Viscous Soln 36 ML,Atropine/Scopalam/Hyo... PO PRN (10:40)
[2025-04-09] MEDS ORDERED: CYCL10 PO (12:34)
[2025-04-09] MEDS ORDERED: TRAM50 PO (12:34)
[2025-04-09] MEDS ORDERED: ONDA4 PO (12:35)
[2025-04-09 16:36] VITALS: BP 115/70
--- NOTE | 2025-04-09 17:22 | NUR ---
SHIFT SUMMARY PATIENT ALERT AND ORIENTED X4, MAKE NEEDS KNOWN. COMPLAINED OF N/V AND PAIN - MEDICATION ADMINISTERED PER EMAR. PATIENT STATES GI COCKTAIL IS HELPING MANAGE HER SYMPTOMS. PATIENT PLEASANT AND COOPERATIVE DURING CARE. NO ACUTE CHANGE DURING THIS SHIFT. SELF REPOSITIONED THROUGHOUT SHIFT. BED LOCKED AND IN LOWEST POSITION. CALL LIGHT WITHIN REACH.
[2025-04-09 19:14] VITALS: BP 136/87
[2025-04-10 04:08] VITALS: BP 111/61
[2025-04-10 05:25] LABS: BASOPHILS ABSOLUTE AUTO 0.07 K/mm3 (0.00-0.23); BASOPHILS PERCENT AUTO 1 % (0-2); EOSINOPHILS ABSOLUTE AUTO 0.29 K/mm3 (0.00-0.68); EOSINOPHILS PERCENT AUTO 3 % (0-6); Hematocrit 41.0 % (33.0-51.0); Hemoglobin 13.4 g/dL (11.5-16.0); IMMATURE GRAN ABSOLUTE AUTO 0.03 K/mm3 (0.00-0.10); IMMATURE GRAN PERCENT AUTO 0 % (0-1); LYMPHOCYTES ABSOLUTE AUTO 2.64 K/mm3 (0.84-5.20); LYMPHOCYTES PERCENT AUTO 29 % (21-46); MONOCYTES ABSOLUTE AUTO 0.71 K/mm3 (0.16-1.47); MONOCYTES PERCENT AUTO 8 % (4-13); Mean Corpuscular HGB Conc 32.7 g/dL (31.5-36.5); Mean Corpuscular Volume 80 fL (80-100); NEUTROPHILS ABSOLUTE AUTO 5.45 K/mm3 (1.96-9.15); NEUTROPHILS PERCENT AUTO 59 % (41-73); NRBC ABSOLUTE 0.00 K/mm3 (0.00-0.02); NRBC Auto 0.0 /100 WBC (0.0-0.2); Platelet Count 272 K/mm3 (150-400); RDW Coefficient Variation 14.4 % (11.7-14.2); RDW Standard Deviation 42.0 fL (35.1-46.3)
[2025-04-10 05:54] LABS: Alanine Aminotransfer (ALT/SGP 25.0 U/L (12-78); Albumin, Blood 3.3 g/dL (3.4-5.0); Albumin/Globulin Ratio 0.9 (0.8-1.8); Anion Gap 10.0 mmol/L (3-11); Aspartate Aminotrans (AST/SGOT 19.0 U/L (12-37); Bilirubin, Total 0.7 mg/dL (0.1-1.0); Blood Urea Nitrogen 12.0 mg/dL (8-24); C-REACTIVE PROTEIN, EXT RANGE 1.84 mg/dL (0.000-0.300); CO2, Blood 20.0 mmol/L (21-32); Calcium, Blood 8.6 mg/dL (8.5-10.1); Chloride, Blood 108.0 mmol/L (98-108); Creatinine, Blood 0.55 mg/dL (0.40-1.00); Globulin, Blood 3.5 g/dL (2.2-4.0); Glucose, Blood 71.0 mg/dL (70-99); Potassium, Blood 3.6 mmol/L (3.5-5.5); Sodium, Blood 134.0 mmol/L (136-145); Total Protein, Blood 6.8 g/dL (6.4-8.2)
--- NOTE | 2025-04-10 06:27 | NUR ---
SHIFT SUMMARY A/Ox4, VSS ON RA. PT REPORTS CONTINUED NAUSEA, MD CONTACTED. ONE TIME DOSE INAPSINE EFFECTIVE; PT WILLING TO TAKE PO TYLENOL FOR 8-10/10 EPIGASTRIC PAIN. PT REPORTS NEITHER PRN DILAUDID NOR TYLENOL EFFECTIVE. TWO EMESIS EVENTS REPORTED; WATERY, NO SOLIDS. NO ACUTE CHANGES OVERNIGHT.
[2025-04-10 08:16] VITALS: BP 106/71
[2025-04-10 16:51] VITALS: BP 112/63
--- NOTE | 2025-04-10 16:56 | NUR ---
SHIFT SUMMARY PATIENT ALERT AND ORIENTED X4, MAKE NEEDS KNOWN. COMPLAIN OF N/V AND PAIN PERSIST. MEDICATION ADMINISTERED PER EMAR. PATIENT PLEASANT AND RECEPTIVE DURING CARE. NO ACUTE CHANGE DURING THIS SHIFT. POWERGLIDE IN PLACED ON LEFT UPPER ARM. SELF REPOSITIONED THROUGHOUT SHIFT. BED LOCKED AND IN LOWEST POSITION. CALL LIGHT WITHIN REACH.
[2025-04-10 19:17] VITALS: BP 109/66
[2025-04-11 03:17] VITALS: BP 120/77
[2025-04-11 04:18] VITALS: BP 115/71
[2025-04-11 05:47] LABS: Anion Gap 10.0 mmol/L (3-11); Blood Urea Nitrogen 7.0 mg/dL (8-24); C-REACTIVE PROTEIN, EXT RANGE 1.68 mg/dL (0.000-0.300); CO2, Blood 23.0 mmol/L (21-32); Calcium, Blood 8.6 mg/dL (8.5-10.1); Chloride, Blood 108.0 mmol/L (98-108); Creatinine, Blood 0.52 mg/dL (0.40-1.00); Glucose, Blood 72.0 mg/dL (70-99); Potassium, Blood 3.6 mmol/L (3.5-5.5); Sodium, Blood 137.0 mmol/L (136-145)
--- NOTE | 2025-04-11 07:32 | NUR ---
SHIFT SUMMARY A/Ox4, VSS ON RA. PT REPORTS CONTINUED NAUSEA WITH INTERMITTENT EMESIS. PT REPORTS 8-9/10 EPIGASTRIC PAIN, PRN TYLENOL AND DILUADID MILDLY EFFECTIVE. PT REPORTS LIGHTHEADEDNESS WITH AMBULATION, RESOLVED WITH REST. EDUCATION PROVIDED ON SAFETY PRECAUTIONS, PT VERBALIZED UNDERSTANDING. PER PT SHE HAD A NORMAL BM THIS MORNING BUT NOTED CHAVEZ BLOOD AFTERWARDS; ASKED PT TO NOTIFY NURSING WITH NEXT VOID.
[2025-04-11 07:53] VITALS: BP 101/65
[2025-04-11] MEDS ORDERED: SUCR1 PO (12:06)
[2025-04-11] MEDS ORDERED: HYDR1TAB94 PO (12:07)
--- NOTE | 2025-04-11 17:25 | NUR ---
DISCHARGED HOME, INSTRUCTIONS TO PATIENT, PATIENT STATED UNDERSTANDING OF MEDICATIONS, FOLLOW UP NEEDS, AND INSTRUCTION. PATIENT DENIED FURTHER QUESTIONS, PLEASANT TO CARE
== END 2025-04-11 17:00 | disposition home or self-care (01) | DRG 392 ==
LOC: ER 16:26 → MEDS 16:27
PROVIDERS: Family Medicine; Hospitalist; Student in an Organized Health Care Education/Training Program; ADMIT Internal Medicine
DX: K29.70 Gastritis, unspecified, without bleeding (principal); K56.609 Unspecified intestinal obstruction, unspecified as to partial versus complete obstruction; Z68.41 Body mass index [BMI] 40.0-44.9, adult; E87.1 Hypo-osmolality and hyponatremia; K21.9 Gastro-esophageal reflux disease without esophagitis; Q05.9 Spina bifida, unspecified; G47.30 Sleep apnea, unspecified; G43.909 Migraine, unspecified, not intractable, without status migrainosus; E66.01 Morbid (severe) obesity due to excess calories; G62.9 Polyneuropathy, unspecified; K58.9 Irritable bowel syndrome, unspecified; N31.9 Neuromuscular dysfunction of bladder, unspecified; E87.6 Hypokalemia; Z87.19 Personal history of other diseases of the digestive system; Z85.72 Personal history of non-Hodgkin lymphomas; Z92.21 Personal history of antineoplastic chemotherapy; Z92.3 Personal history of irradiation; Z87.440 Personal history of urinary (tract) infections; Z91.040 Latex allergy status; Z79.82 Long term (current) use of aspirin
CPT/HCPCS: 36415; 80048; 80053; 81001; 83690; 84703; 85025; 85651; 86140; 87086; 96361; 96365; 96366; 96372-59; 96374; 96375; 96376; 99284-25; A9270; C1751; G0378; J0696; J1171; J1650; J1790; J2405; J2470; J2765; J3480; J7030; J7042; J7050

== ENCOUNTER 2025-05-02 01:46 | Emergency (ER) | payer OTHER ==
[~2025-05-02] VITALS: Ht 162.6 cm; Wt 112.5 kg
[~2025-05-02 01:46] MED LIST changes: +HYDR1TAB94 PO; +ONDA4 PO
[2025-05-02] MEDS ORDERED: Ondansetron HCl 2 MG / ML 2ML Vial IV PRN (02:30)
[2025-05-02 03:58] LABS: Alanine Aminotransfer (ALT/SGP 60.0 U/L (12-78); Albumin, Blood 3.7 g/dL (3.4-5.0); Albumin/Globulin Ratio 1.0 (0.8-1.8); Anion Gap 12.0 mmol/L (3-11); Aspartate Aminotrans (AST/SGOT 50.0 U/L (12-37); Bilirubin, Total 0.5 mg/dL (0.1-1.0); Blood Urea Nitrogen 12.0 mg/dL (8-24); CO2, Blood 23.0 mmol/L (21-32); Calcium, Blood 9.1 mg/dL (8.5-10.1); Chloride, Blood 109.0 mmol/L (98-108); Creatinine, Blood 0.51 mg/dL (0.40-1.00); Globulin, Blood 3.7 g/dL (2.2-4.0); Glucose, Blood 81.0 mg/dL (70-99); Potassium, Blood 4.7 mmol/L (3.5-5.5); Sodium, Blood 139.0 mmol/L (136-145); Total Protein, Blood 7.4 g/dL (6.4-8.2)
[2025-05-02 04:16] LABS: BASOPHILS ABSOLUTE AUTO 0.05 K/mm3 (0.00-0.23); BASOPHILS PERCENT AUTO 0 % (0-2); EOSINOPHILS ABSOLUTE AUTO 0.41 K/mm3 (0.00-0.68); EOSINOPHILS PERCENT AUTO 4 % (0-6); Hematocrit 41.4 % (33.0-51.0); Hemoglobin 13.6 g/dL (11.5-16.0); IMMATURE GRAN ABSOLUTE AUTO 0.05 K/mm3 (0.00-0.10); IMMATURE GRAN PERCENT AUTO 0 % (0-1); LYMPHOCYTES ABSOLUTE AUTO 3.76 K/mm3 (0.84-5.20); LYMPHOCYTES PERCENT AUTO 33 % (21-46); MONOCYTES ABSOLUTE AUTO 0.96 K/mm3 (0.16-1.47); MONOCYTES PERCENT AUTO 9 % (4-13); Mean Corpuscular HGB Conc 32.9 g/dL (31.5-36.5); Mean Corpuscular Volume 81 fL (80-100); NEUTROPHILS ABSOLUTE AUTO 6.07 K/mm3 (1.96-9.15); NEUTROPHILS PERCENT AUTO 54 % (41-73); NRBC ABSOLUTE 0.00 K/mm3 (0.00-0.02); NRBC Auto 0.0 /100 WBC (0.0-0.2); Platelet Count 238 K/mm3 (150-400); RDW Coefficient Variation 15.0 % (11.7-14.2); RDW Standard Deviation 44.3 fL (35.1-46.3)
[2025-05-02] MEDS ORDERED: Prochlorperazine Edisylate 10 mg Vial IV ONE (04:35)
[2025-05-02] MEDS ORDERED: DiphenhydrAMINE HCl 50 MG/ML 1ML Vial IV ONE (04:35)
[2025-05-02] MEDS ORDERED: NS 1,000 ML IV SCH (04:35)
[2025-05-02 04:52] LABS: Bilirubin, Urine Neg (Neg); Color, Urine Yellow (P-Yellow); Glucose Qualitative, Urine Neg (Neg); Ketones, Urine Neg (Neg); Leukocyte Esterase, Urine 2+ (Neg); Protein, Urine Neg (Neg); Source, Urine Fem Cath; Specific Gravity, Urine 1.010 (1.003-1.022); Urobilinogen, Urine NORM (Normal)
[2025-05-02 05:12] LABS: Red Blood Cells, Urine 0-2 /hpf (0-2)
[2025-05-02] MEDS ORDERED: HYDROmorphone HCl/Pf 1MG SYR IV ONE (11:40)
[2025-05-02] MEDS ORDERED: PROC5 PO (13:06)
[2025-05-02] MEDS ORDERED: OXYC5 PO ×2 (13:06→13:07)
[2025-05-02 13:18] VITALS: BP 144/94
== END 2025-05-02 13:25 | disposition home or self-care (01) ==
LOC: ER 01:46
PROVIDERS: Emergency Medicine
DX: R10.9 Unspecified abdominal pain (principal); Z79.899 Other long term (current) drug therapy; Z91.040 Latex allergy status; Z91.018 Allergy to other foods
CPT/HCPCS: 80053; 81001; 83690; 85025; 87077; 87086; 87186; 96374; 96375; 99284-25; J0780; J1171; J1200; J1790; J7030

== ENCOUNTER → 2025-05-08 | Outpatient (CLI) | payer OTHER ==
[~2025-05-08] MED LIST changes: +OXYC5 PO; +PROC5 PO
== END ==
LOC: LAB 16:15 → LAB SHORT 16:15
DX: N39.0 Urinary tract infection, site not specified (principal); A49.9 Bacterial infection, unspecified
CPT/HCPCS: 87077; 87086; 87186

== ENCOUNTER 2025-06-06 13:43 | Emergency (ER) | payer OTHER ==
[~2025-06-06] VITALS: Ht 162.6 cm; Wt 115.7 kg
[2025-06-06 14:58] LABS: Alanine Aminotransfer (ALT/SGP 26.0 U/L (12-78); Albumin, Blood 3.5 g/dL (3.4-5.0); Albumin/Globulin Ratio 1.0 (0.8-1.8); Anion Gap 9.0 mmol/L (3-11); Aspartate Aminotrans (AST/SGOT 24.0 U/L (12-37); Bilirubin, Total 0.8 mg/dL (0.1-1.0); Blood Urea Nitrogen 12.0 mg/dL (8-24); CO2, Blood 22.0 mmol/L (21-32); Calcium, Blood 8.6 mg/dL (8.5-10.1); Chloride, Blood 110.0 mmol/L (98-108); Creatinine, Blood 0.74 mg/dL (0.40-1.00); Globulin, Blood 3.6 g/dL (2.2-4.0); Glucose, Blood 93.0 mg/dL (70-99); Potassium, Blood 4.0 mmol/L (3.5-5.5); Sodium, Blood 137.0 mmol/L (136-145); Total Protein, Blood 7.1 g/dL (6.4-8.2)
[2025-06-06 15:12] LABS: BASOPHILS ABSOLUTE AUTO 0.04 K/mm3 (0.00-0.23); BASOPHILS PERCENT AUTO 0 % (0-2); EOSINOPHILS ABSOLUTE AUTO 0.21 K/mm3 (0.00-0.68); EOSINOPHILS PERCENT AUTO 2 % (0-6); Hematocrit 42.0 % (33.0-51.0); Hemoglobin 13.6 g/dL (11.5-16.0); IMMATURE GRAN ABSOLUTE AUTO 0.02 K/mm3 (0.00-0.10); IMMATURE GRAN PERCENT AUTO 0 % (0-1); LYMPHOCYTES ABSOLUTE AUTO 2.72 K/mm3 (0.84-5.20); LYMPHOCYTES PERCENT AUTO 28 % (21-46); MONOCYTES ABSOLUTE AUTO 0.51 K/mm3 (0.16-1.47); MONOCYTES PERCENT AUTO 5 % (4-13); Mean Corpuscular HGB Conc 32.4 g/dL (31.5-36.5); Mean Corpuscular Volume 84 fL (80-100); NEUTROPHILS ABSOLUTE AUTO 6.33 K/mm3 (1.96-9.15); NEUTROPHILS PERCENT AUTO 64 % (41-73); NRBC ABSOLUTE 0.00 K/mm3 (0.00-0.02); NRBC Auto 0.0 /100 WBC (0.0-0.2); Platelet Count 227 K/mm3 (150-400); RDW Coefficient Variation 14.1 % (11.7-14.2); RDW Standard Deviation 43.4 fL (35.1-46.3)
[2025-06-06 16:45] VITALS: BP 133/81
[2025-06-06 17:06] LABS: Source, Urine Clean Catch
[2025-06-06 17:12] LABS: Bilirubin, Urine Neg (Neg); Color, Urine Yellow (P-Yellow); Glucose Qualitative, Urine Neg (Neg); Ketones, Urine Neg (Neg); Leukocyte Esterase, Urine 3+ (Neg); Protein, Urine 1+ (Neg); Specific Gravity, Urine 1.020 (1.003-1.022); Urobilinogen, Urine NORM (Normal)
[2025-06-06 17:27] LABS: White Blood Cells, Urine TNTC /hpf (0-5)
[2025-06-06] MEDS ORDERED: LevoFLOXacin 750 MG/D5W 150ML 150 ML IV ONE (18:20)
[2025-06-06] MEDS ORDERED: HYDROmorphone HCl/Pf 1MG SYR IV PRN (18:25)
[2025-06-06] MEDS ORDERED: LEVFLO500 PO (19:28)
[2025-06-06] MEDS ORDERED: ONDA4ODT MM (19:29)
== END 2025-06-06 20:29 | disposition home or self-care (01) ==
LOC: ER 13:43
PROVIDERS: Emergency Medicine
DX: N39.0 Urinary tract infection, site not specified (principal)
CPT/HCPCS: 74177; 80053; 81001; 83690; 85025; 87077; 87086; 87186; 96365-59; 96375; 99284-25; J1171; J1790; J1956; Q9967

== ENCOUNTER → 2025-06-10 | Outpatient (CLI) | payer OTHER ==
[~2025-06-10] MED LIST changes: +LEVFLO500 PO
[2025-06-10 14:41] LABS: BASOPHILS ABSOLUTE AUTO 0.04 K/mm3 (0.00-0.23); BASOPHILS PERCENT AUTO 0 % (0-2); EOSINOPHILS ABSOLUTE AUTO 0.26 K/mm3 (0.00-0.68); EOSINOPHILS PERCENT AUTO 3 % (0-6); Hematocrit 44.2 % (33.0-51.0); Hemoglobin 14.6 g/dL (11.5-16.0); IMMATURE GRAN ABSOLUTE AUTO 0.02 K/mm3 (0.00-0.10); IMMATURE GRAN PERCENT AUTO 0 % (0-1); LYMPHOCYTES ABSOLUTE AUTO 3.17 K/mm3 (0.84-5.20); LYMPHOCYTES PERCENT AUTO 35 % (21-46); MONOCYTES ABSOLUTE AUTO 0.57 K/mm3 (0.16-1.47); MONOCYTES PERCENT AUTO 6 % (4-13); Mean Corpuscular HGB Conc 33.0 g/dL (31.5-36.5); Mean Corpuscular Volume 82 fL (80-100); NEUTROPHILS ABSOLUTE AUTO 5.03 K/mm3 (1.96-9.15); NEUTROPHILS PERCENT AUTO 55 % (41-73); NRBC ABSOLUTE 0.00 K/mm3 (0.00-0.02); NRBC Auto 0.0 /100 WBC (0.0-0.2); Platelet Count 250 K/mm3 (150-400); RDW Coefficient Variation 14.2 % (11.7-14.2); RDW Standard Deviation 41.1 fL (35.1-46.3)
[2025-06-10 14:52] LABS: Alanine Aminotransfer (ALT/SGP 24.0 U/L (12-78); Albumin, Blood 3.7 g/dL (3.4-5.0); Albumin/Globulin Ratio 0.9 (0.8-1.8); Anion Gap 16.0 mmol/L (6-16); Aspartate Aminotrans (AST/SGOT 15.0 U/L (12-37); Bilirubin, Total 0.4 mg/dL (0.1-1.0); Blood Urea Nitrogen 12.0 mg/dL (8-24); CO2, Blood 26.0 mmol/L (21-32); Calcium, Blood 8.9 mg/dL (8.5-10.1); Chloride, Blood 104.0 mmol/L (98-108); Creatinine, Blood 0.82 mg/dL (0.40-1.00); Globulin, Blood 4.1 g/dL (2.2-4.0); Glucose, Blood 93.0 mg/dL (70-99); Potassium, Blood 3.9 mmol/L (3.5-5.5); Sodium, Blood 142.0 mmol/L (136-145); Total Protein, Blood 7.8 g/dL (6.4-8.2)
== END | disposition home or self-care (01) ==
LOC: LAB 14:36 → LAB SHORT 14:36
PROVIDERS: Family Medicine
DX: E86.0 Dehydration (principal)
CPT/HCPCS: 80053; 85025